=== PATIENT | female | born 1955 | race Caucasian/White ===

== ENCOUNTER 2021-06-20 09:35 | Emergency (ER) | payer OTHER, SELFPAY ==
--- NOTE | ~2021-06-20 | CT_ITS ---
EXAMINATION: CTA chest DATE: 06/20/2021 12:13 INDICATION: Shortness of breath. Cough. Upper back pain. TECHNIQUE: Computed tomographic angiography (CTA) of the chest was performed with 100 mL Omnipaque-35 0 intravenous contrast. Automated exposure control and iterative reconstruction technique were employ ed. The dose-length product was 264.37 mGy-cm. Maximum intensity projection 3D-reconstructions of the aorta and other arteries were constructed by the technologist on a separate workstation. COMPARISON: Chest single view 06/20/2021 FINDINGS: The lungs demonstrate mild atelectasis. No pleural effusion. The heart size is normal. No p ericardial effusion. There is no pulmonary embolus. Thoracic aorta is normal. There is a small slidin g hiatal hernia. There is moderate thoracic spondylosis. IMPRESSION: 1. Normal thoracic aorta. 2. No pulmonary embolus. 3. Small sliding hiatal hernia. Reviewed, dictated and finalized at location B.
--- NOTE | ~2021-06-20 | XR_ITS ---
XR chest 1V portable 06/20/2021 10:57 Indication: Shortness of breath. Nonproductive cough. Fever. Procedure: AP portable chest Comparison: 08/29/2016 Findings: Bibasilar airspace disease. Shallow inspiration. Heart size normal. No pleural effusion, ed maikol or pneumothorax. No acute osseous abnormality. Impression: 1: Bibasilar airspace disease, atelectasis versus developing pneumonia. Reviewed, dictated and finalized at location A. Impression: 1: Bibasilar airspace disease, atelectasis versus developing pneumonia.
[2021-06-20 09:38] VITALS: BP 125/69; PULSE 85; RESP 16; TEMP 36.2; O2SAT 97
[2021-06-20 10:21] VITALS: O2SAT 100
--- NOTE | 2021-06-20 10:30 | ECG_ITS ---
Measurements Intervals [place] Rate: 79 P: 6 [place]: 139 QRS: 21 QRSD: 86 T: -15 QT: 343 QTc: 393 Interpretive Statements SINUS RHYTHM BORDERLINE ST-T WAVE ABNORMALITY- ANT/INF LEADS BORDERLINE ECG Electronically Signed On 06-20-2021 10:44:25 CDT by Mukund Heart D.O.
--- NOTE | 2021-06-20 10:31 | ED.GENADULT ---
HPI - General Adult General Chief complaint: Upper Respiratory Infection Stated complaint: sob, back pain Time Seen by Provider: 06/20/21 10:11 Source: patient and RN notes reviewed Mode of arrival: ambulatory Limitations: no limitations History of Present Illness HPI narrative: This is a 66 year old female who presents for evaluation of shortness of breath and back pain. She reports nonproductive cough for 2 months. Her cough became worse over the past week. She also noticed constant mid upper back pain since friday. She has taken ibuprofen for her pain without relief. She is having difficulty breathing since Friday and it has gotten worse. She noticed that she is short of breath with laying flat since yesterday. Last night she had subjective fever with decreased appetite. She denies nausea, vomiting, abdominal pain, wheezing chest pain. She has not seen a doctor in 5 years. Related Data Allergies Allergy/AdvReac Type Severity Reaction Status Date / Time nitrofurantoin Allergy Unknown Unknown Verified 06/20/21 10:21 prednisone AdvReac Mild HYPER, Verified 06/20/21 10:21 UNABLE TO SLEEP/FOCUS DIPHENHYDRAMINE HCL AdvReac Mild Nervousness Uncoded 06/20/21 10:21 Review of Systems Review of Systems: All systems reviewed & are unremarkable except as noted in HPI and below Constitutional: Constitutional: Reports fatigue and Reports fever(s) ENT: Denies dizziness and Denies sore throat Cardiovascular: Cardiovascular: Denies chest pain Respiratory: Respiratory: Reports cough and Reports dyspnea Gastrointestinal: Gastrointestinal: Denies abdominal pain, Denies diarrhea, Denies nausea and Denies vomiting Musculoskeletal: Musculoskeletal: Reports back pain PMFSH Past Medical History Medical History (Updated 06/20/21 @ 13:33 by Elicia Chávez MD) Patient denies medical problems Surgical History Surgical History (Updated 06/20/21 @ 10:32 by Elicia Chávez MD) No pertinent past surgical history Family History Family History (Updated 09/11/17 @ 11:29 by DOCTOR UNKNOWN) Grandparent Hypertension Social History Social History Smoking status: Never smoker Alcohol intake: never Exam Const: General: no acute distress and alert Orientation/consciousness: patient oriented x3 Eyes: EOM: EOMs intact bilaterally Neck: Neck: normal visual inspection Chest: Chest palpation & inspection: normal inspection of the chest Resp: Effort & Inspection: normal respiratory effort and no retractions Auscultation: clear to auscultation bilaterally Cardio: Rate: regular rate Rhythm: regular rhythm Heart sounds: no murmurs GI: GI Palp: Yes Soft to palpation, No Tenderness to palpation present (GI) and No Guarding due to palpation present (GI) Auscultation: normal bowel sounds Back/Spine/Pelvis: Back: no CVA tenderness Thoracic/Lumbar Spine: thoracic and lumbar spine normal to inspection Skin: General skin exam: normal color Rashes: no rashes Neuro: General: patient oriented x3, moves all extremities and CN's II-XI intact bilaterally Extrem: General: normal to inspection Psych: Mental Status: mental status grossly normal Affect: normal affect Course Reevaluation(s) Reevaluation #1: Patient states she feels better. I discussed evaluation is unremarkable other than mild leukopenia. She will follow up with PCP. She will be tested for covid. Date: 06/20/21 Time: 13:29 Vital Signs Vital signs: Vital Signs Temperature 97.2 F L 06/20/21 09:38 Pulse Rate 85 06/20/21 09:38 Respiratory Rate 16 06/20/21 09:38 Blood Pressure 125/69 06/20/21 09:38 Pulse Oximetry 97 06/20/21 09:38 Temperature 97.2 F L 06/20/21 09:38 Pulse Rate 76 06/20/21 13:01 Respiratory Rate 17 06/20/21 13:01 Blood Pressure 98/53 L 06/20/21 13:01 Pulse Oximetry 96 06/20/21 13:01 Medical Decision Making Vital Signs Vital Signs: Vital Signs Temperature 97.2 F L
[2021-06-20] MEDS: SODIUM CHLORIDE 0.9% IV 1,000 ML 999 ML IV CONT (10:54)
[2021-06-20 10:57] LABS: Basophils Percent Auto 0.7 % (0.2-1.2); Eosinophils Percent Auto 0.3 % (0-4.4); Hematocrit 44.7 % (37.0-47.0); Hemoglobin 14.7 g/dL (12.0-15.0); Immature Granulocyte Absolute 0.01 K/mm3 (0.00-0.031); Immature Granulocyte Percent A 0.3 % (0-0.5); Lymphocytes Absolute Auto 0.58 K/mm3 (0.9-3.2); Mean Corpuscular HGB Conc 32.9 g/dl (32-36); Mean Corpuscular Hemoglobin 30.5 pg (26-34); Mean Corpuscular Volume 92.7 fl (80-100); Mean Platelet Volume 10.7 fl (7.4-10.4); Monocytes Absolute Auto 0.6 K/mm3 (0.1-0.6); Neutrophils Absolute Auto 1.9 K/mm3 (1.3-6.7); Neutrophils Percent Auto 61.7 % (45.5-73.1); Platelet Count Result 191 k/mm3 (150-375); Red Blood Count 4.82 M/mm3 (4.2-5.4); Red Cell Distribution Width 12.5 % (11.5-14.5); White Blood Count 3.1 K/mm3 (4.5-10.0)
[2021-06-20 11:01] VITALS: BP 101/76; PULSE 85; RESP 17; O2SAT 96
[2021-06-20 11:06] LABS: Lactic Acid Reflex 0.7 mmol/L (0.7-2.1)
[2021-06-20 11:08] LABS: Alanine Aminotransferase 25 U/L (4-35); Albumin Level 4.1 g/dL (3.5-5.1); Alkaline Phosphatase 90 U/L (38-126); Anion Gap 7 mmol/L (8-16); Aspartate Amino Transferase 29 U/L (14-36); Bilirubin,Total 0.5 mg/dL (0.2-1.3); Blood Urea Nitrogen 14 mg/dL (7-17); Calcium 8.7 mg/dL (8.4-10.2); Carbon Dioxide 23 mmol/L (22-30); Chloride 105 mmol/L (98-107); Estimated CRCL calculation 55 ml/min; Estimated Glomerular Filt Rate > 60; Glucose 85 mg/dL (65-110); Potassium 3.6 mmol/L (3.4-5.0); Sodium 135 mmol/L (137-145)
[2021-06-20 11:16] LABS: NT Pro B Type Natriuretic Pept 78 pg/mL (5-100)
[2021-06-20 11:20] LABS: CRP 0.7 mg/dL (<1.0)
[2021-06-20 11:20] LABS: Add Urine Microscopic? YES; Appearance Urine Clear (Clear); Bacteria Urine 2+ /hpf; Bilirubin Urine Negative (Negative); Blood Urine Negative (Negative); Color Urine Yellow (Yellow); Glucose Urine UA Negative (Negative); Ketones Urine Negative (Negative); Leukocyte Esterase Ur Trace LEU/UL (Negative); Mucus Urine Rare /lpf; Nitrate Urine Negative (Negative); Protein Urine Negative (Negative); RBC Urine 0-2 /hpf (0-2); Specific Grav Ur 1.014 (1.001-1.035); Squamous Epithelial Cell Urine Occasional /hpf (Few); Urobilinogen Urine Negative mg/dL (<2.0); WBC Urine 0-3 /hpf
[2021-06-20 11:29] LABS: Troponin I < 0.012 ng/mL (0.000-0.034)
[2021-06-20 11:31] VITALS: BP 93/71; PULSE 77; RESP 19; O2SAT 96
[2021-06-20 11:35] LABS: INR 0.9; Prothrombin Time 12.1 Seconds (11.1-14.7)
[2021-06-20 11:36] LABS: Partial Thromboplastin Time 26.4 SECONDS (22.3-36.8)
[2021-06-20 11:38] LABS: D Dimer 0.41 ug/mL (<0.48)
[2021-06-20 13:01] VITALS: BP 98/53; PULSE 76; RESP 17; O2SAT 96
[2021-06-21 17:13] LABS: SARS-CoV-2 RNA PCR Positive
== END 2021-06-20 13:55 | disposition home or self-care (01) ==
PROVIDERS: Emergency Provider General Practice; PCP Family Medicine
DX: U07.1 COVID-19 (principal); R53.83 Other fatigue; M54.6 Pain in thoracic spine; K44.9 Diaphragmatic hernia without obstruction or gangrene; R91.8 Other nonspecific abnormal finding of lung field; R94.31 Abnormal electrocardiogram [ECG] [EKG]
CPT/HCPCS: 36415; 71045; 71275; 80053; 81001; 83605; 83735; 83880; 84484; 85025; 85380; 85610; 85730; 86140; 93005; 96361; 96365; 99284; C9803; J0131; J7030; Q9967; U0003; U0005

== ENCOUNTER 2021-06-25 01:42 | Emergency (ER) | payer OTHER, SELFPAY ==
[2021-06-25 01:52] VITALS: BP 111/77; PULSE 99; RESP 20; TEMP 37.6; O2SAT 94
[2021-06-25 02:08] VITALS: BP 119/71; PULSE 94; RESP 20; O2SAT 94
[2021-06-25] MEDS: KETOROLAC 30 MG/ML VIAL (*BKC) IV PUSH (02:21)
[2021-06-25] MEDS: METOCLOPRAMIDE HCL INJ 10 MG/2 ML VIAL IV PUSH (02:21)
[2021-06-25] MEDS: SODIUM CHLORIDE 0.9% IV 1,000 ML 999 ML IV CONT (02:21)
[2021-06-25] MEDS: diphenhydrAMINE HCl INJ 50 MG/ML VIAL 25 MG IV PUSH (02:21)
--- NOTE | 2021-06-25 02:38 | ED.HA ---
HPI - Headache General Chief Complaint: Headache Stated Complaint: covid + 3 days ago; c/o alejandro that won't go away. Time Seen by Provider: 06/25/21 01:46 History of Present Illness HPI Narrative: Patient is a 66-year-old female who presents to the ER with headache. Frontal and aching behind her eyes. Endorses photophobia and phonophobia. No nausea or vomiting. No neck stiffness or limitation range of motion. She has no numbness/tingling/weakness in the arms or legs. Patient recently diagnosed with COVID-19 the day her headache started. She reports fevers and chills. No relief with ibuprofen. Related Data Allergies Allergy/AdvReac Type Severity Reaction Status Date / Time nitrofurantoin Allergy Unknown Unknown Verified 06/20/21 10:21 prednisone AdvReac Mild HYPER, Verified 06/20/21 10:21 UNABLE TO SLEEP/FOCUS DIPHENHYDRAMINE HCL AdvReac Mild Nervousness Uncoded 06/20/21 10:21 Review of Systems Review of Systems: All systems reviewed & are unremarkable except as noted in HPI and below Constitutional: Constitutional: Reports chills, Reports fatigue and Reports fever(s) Eyes: Eyes: Denies change in vision and Reports photophobia ENT: Reports nasal congestion and Denies sore throat Respiratory: Respiratory: Reports cough, Denies dyspnea and Denies wheezing Neurologic: Denies dizziness, Reports headache(s), Denies focal weakness and Denies numbness PMFSH Past Medical History Medical History (Updated 06/25/21 @ 03:52 by Kevin Lozano MD) Patient denies medical problems Surgical History Surgical History (Updated 06/25/21 @ 02:43 by Kevin Lozano MD) History of hysterectomy Hx of appendectomy Family History Family History (Updated 09/11/17 @ 11:29 by DOCTOR UNKNOWN) Grandparent Hypertension Social History Social History Smoking status: Never smoker Alcohol intake: never Exam Narrative: GENERAL: Well-appearing, well-nourished, and in no acute distress. HEAD: Normocephalic, atraumatic. EYES: PERRL and EOMI. ENT: Mucous membranes moist. CHEST: Clear to auscultation. No respiratory distress. HEART: Regular rate and rhythm. Normal peripheral pulses. ABDOMEN: Soft, nontender, nondistended. EXTREMITIES: Normal range of motion. No edema. SKIN: Warm, dry, no rash. NEURO: Alert and oriented x3. Course Course Emergency Course: Patient originally treated with Reglan/Benadryl/Toradol without much improvement in headache. Patient then received morphine and felt significant improvement. Feels comfortable discharge home. Vital Signs Vital signs: Vital Signs Temperature 99.6 F 06/25/21 01:52 Pulse Rate 99 06/25/21 01:52 Respiratory Rate 20 06/25/21 01:52 Blood Pressure 111/77 06/25/21 01:52 Pulse Oximetry 94 06/25/21 01:52 Temperature 99.6 F 06/25/21 01:52 Pulse Rate 85 06/25/21 03:54 Respiratory Rate 20 06/25/21 03:54 Blood Pressure 104/63 06/25/21 03:54 Pulse Oximetry 95 06/25/21 03:54 Discharge Plan Discharge Clinical Impression: Headache Patient Disposition: Home, Self-Care Condition: Stable Instructions: Acute Headache (ED) Additional Instructions: Alternate Tylenol and ibuprofen for headache at home. Return to the ER if you cannot keep down food or water, you have new focal weakness or numbness in arm or leg, you have slurred speech, you have additional concerns. Prescriptions: No Action albuterol sulfate 90 mcg/actuation HFA aerosol inhaler 2 puff inhalation QID PRN (Reason: shortness of breath or wheezing) Qty: 6.7 RF: 0 benzonatate [Tessalon Perles] 100 mg capsule 100 mg PO TID PRN (Reason: cough) Qty: 10 RF: 0 Follow-up/Referrals: Sonny Bills MD [Primary Care Provider] - 1 Week
[2021-06-25 03:12] VITALS: BP 115/76; PULSE 91; RESP 24; O2SAT 93
[2021-06-25] MEDS: MORPHINE SULFATE (*CRX) 4 MG/ML INJ IV PUSH (03:12)
[2021-06-25 03:44] VITALS: BP 102/63; PULSE 81; RESP 22; O2SAT 92
[2021-06-25 03:54] VITALS: BP 104/63; PULSE 85; RESP 20; O2SAT 95
== END 2021-06-25 04:15 | disposition home or self-care (01) ==
PROVIDERS: Emergency Provider Emergency Medicine; PCP Family Medicine
DX: U07.1 COVID-19 (principal); R51.9 Headache, unspecified
CPT/HCPCS: 96361; 96374; 96375; 99284; J1200; J1885; J2270; J2765; J7030

== ENCOUNTER 2021-06-30 09:14 | Inpatient (IN) | payer OTHER, MEDICARE, SELFPAY ==
[2021-06-30] VITALS (13 sets, daily range): BP systolic 109–123; BP diastolic 64–81; PULSE 74–107; RESP 18–28; TEMP 36.2–36.7; O2SAT 89–96; BMI 30.4
--- NOTE | ~2021-06-30 | US_ITS ---
US abdomen limited DATE: 06/30/2021 15:12 INDICATION: Elevated liver enzymes TECHNIQUE: Real-time imaging of liver, pancreas, gallbladder COMPARISON: None FINDINGS: No hepatic space-occupying mass lesion is evident. Normal hepatopedal portal venous flow di rection. The pancreas is not optimally evaluated due to interference from bowel gas. No gallstones or gallbladder wall thickening or abnormal pericholecystic fluid collection. Negative s onographic Velez's sign. The common bile duct measures 4 mm, normal. IMPRESSION: Limited evaluation of pancreas; otherwise unremarkable examination Reviewed, dictated and finalized at Location A. Reviewed, dictated and finalized at location A.
--- NOTE | ~2021-06-30 | XR_ITS ---
EXAMINATION: XR chest 1V portable DATE: 06/30/2021 09:52 INDICATION: Shortness of breath. COVID positive. TECHNIQUE: frontal view of the chest was obtained. COMPARISON: Chest radiograph dated 06/20/2021 FINDINGS: Increasing opacities in the right upper bilateral mid and lower lung zones with appearance most consi stent with COVID pneumonia. No pleural effusion or pneumothorax. The cardiomediastinal silhouette is normal. IMPRESSION: 1. New opacities in the right upper and bilateral mid and lower lung zones and favor COVID pneumonia over pulmonary edema. Reviewed, dictated and finalized at location A.
--- NOTE | ~2021-06-30 | CT_ITS ---
EXAMINATION: CTA chest PE protocol DATE: 06/30/2021 11:26 INDICATION: Shortness of breath. Elevated d-dimer. TECHNIQUE: Computed tomography (CT) pulmonary angiogram of the chest was performed with 100 mL Omnipa que-350 intravenous contrast. Additional 3D reconstructions utilizing coronal maximum intensity proje ction (MIP) were performed. Automated exposure control and iterative reconstruction technique were em ployed. The dose-length product was 219.22 mGy-cm. COMPARISON: None FINDINGS: Excellent contrast opacification of the pulmonary arteries. There is moderate streak artifact from de nse contrast in the superior vena cava and right atrium. Mild to moderate basilar predominant scatter ed respiratory motion artifact. Together this decreases sensitivity primarily in the basilar subsegme ntal pulmonary arteries. No pulmonary motion. Scattered bandlike opacities, patchy groundglass opacit ies and small regions of consolidation throughout both lungs relatively sparing the left upper lung z one with appearance most consistent with COVID pneumonia. No pleural effusion. Heart size is normal. No pericardial effusion. Small to moderate-sized sliding-type hiatal hernia. Thoracic aorta is normal in caliber with no dissection. Mild mediastinal lymphadenopathy which is likely reactive. Minimal S- shaped curvature of the thoracic spine. IMPRESSION: 1. No evident pulmonary embolism with sensitivity decreased in some of the basilar subsegmental pulmo nary arteries due to primarily to motion artifact. 2. Diffuse bilateral lung disease most consistent with COVID pneumonia. Reviewed, dictated and finalized at location A. IMPRESSION: 1. No evident pulmonary embolism with sensitivity decreased in some of the basi lar subsegmental pulmonary arteries due to primarily to motion artifact. 2. Diffuse bilateral lung disease most consistent with COVID pneumonia.
--- NOTE | 2021-06-30 09:32 | ECG_ITS ---
Measurements Intervals [place] Rate: 104 P: 18 [place]: 148 QRS: 69 QRSD: 91 T: -22 QT: 320 QTc: 422 Interpretive Statements SINUS TACHYCARDIA EARLY PRECORDIAL R/S TRANSITION ST-T WAVE ABNORMALITY IN ANTEROLAT/INF LEADS- CONSIDER ISCHEMIA ABNORMAL ECG Electronically Signed On 06-30-2021 12:21:22 CDT by Mukund Heart D.O.
--- NOTE | 2021-06-30 09:41 | ED.SOB ---
HPI - SOB/Dyspnea General Chief Complaint: Shortness of Breath/Dyspnea Stated Complaint: covid +, weakness Time Seen by Provider: 06/30/21 09:23 Source: patient, RN notes reviewed and old records reviewed Mode of arrival: ambulatory Limitations: no limitations History of Present Illness HPI Narrative: This is a 66 year old COVID + female who presents for evaluation of weakness and shortness of breath. Patient was diagnosed with COVID 10 days after she presented to ER with back pain, fever, cough for 2 days. She reports worsening shortness of breath over the past 1 week. She has intermittent nausea and vomiting, but she denies diarrhea. She states she is not eating or drinking very much. She denies chest pain or abdominal pain. She does reports a continued cough with subjective fever. She just feels so weak, and her oxygen saturation was 89% on room air on arrival in triage. Related Data Allergies Allergy/AdvReac Type Severity Reaction Status Date / Time nitrofurantoin Allergy Unknown Unknown Verified 06/30/21 09:30 diphenhydramine AdvReac Mild Nervousness Verified 06/30/21 09:34 prednisone AdvReac Mild HYPER, Verified 06/30/21 09:30 UNABLE TO SLEEP/FOCUS Review of Systems Review of Systems: All systems reviewed & are unremarkable except as noted in HPI and below Constitutional: Constitutional: Reports fever(s) and Reports weakness Cardiovascular: Cardiovascular: Denies chest pain Respiratory: Respiratory: Reports cough and Reports dyspnea Gastrointestinal: Gastrointestinal: Denies abdominal pain, Denies diarrhea, Reports nausea and Reports vomiting Neurologic: Reports weakness PMFSH Past Medical History Medical History Patient denies medical problems Surgical History Surgical History History of hysterectomy Hx of appendectomy Family History Family History Grandparent Hypertension Social History Social History (Updated 06/30/21 @ 14:04 by Louisa Bridges NP) Social History: The patient lives with her whom is her poa and she desires to be a full code. She works for an [employer]. She has no children. Lifelong nonsmoker and does not use alcohol. No marijuana or illicit drugs. Smoking status: Never smoker Alcohol intake: never Substance use: never Spiritual care concerns: No Exam Const: General: no acute distress and alert Orientation/consciousness: patient oriented x3 HENMT: Mouth: Yes lip normal and Yes dry mucous membranes Eyes: EOM: EOMs intact bilaterally Resp: Effort & Inspection: normal respiratory effort and no retractions Auscultation: clear to auscultation bilaterally Cardio: Rate: tachycardic Rhythm: regular rhythm Heart sounds: no murmurs GI: GI Palp: Yes Soft to palpation, No Tenderness to palpation present (GI) and No Guarding due to palpation present (GI) Auscultation: normal bowel sounds Skin: General skin exam: normal color Rashes: no rashes Neuro: General: patient oriented x3, moves all extremities and CN's II-XI intact bilaterally Extrem: General: normal to inspection Psych: Mental Status: mental status grossly normal Affect: normal affect Course Consultations Consultation #1: PAtient was found to have hypoxia due to covid pneumonia. She is also dehydrated. She will be admitted to hospitalist service. She also has new elevated LFT. I discussed case with Louisa dill who accepts patient to service. Date: 06/30/21 Time: 12:20 Vital Signs Vital signs: Vital Signs Temperature 97.1 F L 06/30/21 09:19 Pulse Rate 107 H 06/30/21 09:19 Respiratory Rate 26 H 06/30/21 09:19 Blood Pressure 123/75 06/30/21 09:19 Pulse Oximetry 89 L 06/30/21 09:19 Temperature 98.0 F 06/30/21 16:00 Pulse Rate 82 06/30/21 16:00 Respiratory Rate 24 H 06/30/21 16:00
[2021-06-30 09:44] LABS: Glucose Point of Care 92 mg/dl (65-105)
[2021-06-30 09:46] LABS: Basophils Percent Auto 0.2 % (0.2-1.2); Hematocrit 45.6 % (37.0-47.0); Hemoglobin 15.4 g/dL (12.0-15.0); Immature Granulocyte Absolute 0.09 K/mm3 (0.00-0.031); Immature Granulocyte Percent A 1.1 % (0-0.5); Lymphocytes Absolute Auto 0.52 K/mm3 (0.9-3.2); Lymphocytes Percent Auto 6.5 % (18.3-44.2); Mean Corpuscular HGB Conc 33.8 g/dl (32-36); Mean Corpuscular Hemoglobin 29.8 pg (26-34); Mean Corpuscular Volume 88.4 fl (80-100); Mean Platelet Volume 10.9 fl (7.4-10.4); Monocytes Absolute Auto 0.6 K/mm3 (0.1-0.6); Neutrophils Absolute Auto 6.8 K/mm3 (1.3-6.7); Neutrophils Percent Auto 84.2 % (45.5-73.1); Platelet Count Result 246 k/mm3 (150-375); Red Blood Count 5.16 M/mm3 (4.2-5.4); Red Cell Distribution Width 12.5 % (11.5-14.5)
[2021-06-30] MEDS: SODIUM CHLORIDE 0.9% IV 1,000 ML 999 ML IV CONT ×2 (09:51→11:06)
[2021-06-30 10:09] LABS: NT Pro B Type Natriuretic Pept 225 pg/mL (5-100); Troponin I < 0.012 ng/mL (0.000-0.034)
[2021-06-30 10:10] LABS: Partial Thromboplastin Time 25.8 SECONDS (22.3-36.8)
[2021-06-30 10:12] LABS: Alanine Aminotransferase 190 U/L (4-35); Albumin Level 3.6 g/dL (3.5-5.1); Alkaline Phosphatase 199 U/L (38-126); Anion Gap 9 mmol/L (8-16); Aspartate Amino Transferase 214 U/L (14-36); Bilirubin,Total 1.6 mg/dL (0.2-1.3); Blood Urea Nitrogen 21 mg/dL (7-17); CRP 14.2 mg/dL (<1.0); Calcium 8.6 mg/dL (8.4-10.2); Carbon Dioxide 24 mmol/L (22-30); Chloride 102 mmol/L (98-107); Estimated CRCL calculation 61 ml/min; Estimated Glomerular Filt Rate > 60; Glucose 99 mg/dL (65-110); Potassium 3.4 mmol/L (3.4-5.0); Sodium 135 mmol/L (137-145)
[2021-06-30 10:13] LABS: D Dimer 0.94 ug/mL (<0.48)
[2021-06-30 10:15] LABS: Alveolar/Arterial O2 Gradient 78.2 mmHg; Base Excess ABG -0.7 mEq/l (+/-2.0); Fractional Inspired Oxygen 28 %; HCO3 ABG 22.1 mEq/l (22.0-26.0); Oxygen Content ABG 19.5 %vol (16.0-22.0); Oxygen Saturation ABG 96.9 % (95.0-100.0); Oxyhemoglobin 95.5 % THb (90.0-100.0); PCO2 ABG 31.7 mmHg (35.0-45.0); Total Hemoglobin 14.5 g/dL (12.0-18.0); pH ABG 7.462 (7.350-7.450)
[2021-06-30 10:16] LABS: Device NASAL CANNULA; Modified Allen's Test Pass; Site Drawn RIGHT BRACHIAL
[2021-06-30 10:19] LABS: Lactic Acid Reflex 0.7 mmol/L (0.7-2.1)
[2021-06-30 11:17] LABS: Add Urine Microscopic? YES; Appearance Urine Cloudy (Clear); Bacteria Urine 4+ /hpf; Bilirubin Urine 1+ (Negative); Blood Urine 2+ (Negative); Color Urine Amber (Yellow); Glucose Urine UA Negative (Negative); Ketones Urine 1+ mg/dL (Negative); Leukocyte Esterase Ur 2+ LEU/UL (Negative); Mucus Urine Rare /lpf; Nitrate Urine Positive (Negative); Protein Urine 2+ mg/dL (Negative); Specific Grav Ur 1.023 (1.001-1.035); Squamous Epithelial Cell Urine Few /hpf (Few); WBC Urine 31-50 /hpf
[2021-06-30] MEDS: SODIUM CHLORIDE 0.9% IV 1,000 ML 125 ML IV CONT (12:52)
[2021-06-30] MEDS: DEXAMETHASONE 2 MG TABLET 6 MG PO (13:34)
--- NOTE | 2021-06-30 13:45 | PC.NURSE ---
attempted to call floor for report. nurse will call ed back when avail.
--- NOTE | 2021-06-30 13:45 | PM.IMHP ---
H&P: HPI History of Present Illness Date/Time: 06/30/21 13:45Thishawna is a 66 year old femal patient who came into the er with complaints of weakness and sob. The patient was dx with covid 19 approximately 10 days ago. The patient stated that her cough and back pain has gotten worse over the last 2 days. She has not been drinking or eating well . She stated that she had a tactile fever as well. She has nausea with intermittent vomiting. She is weak. Her o2 saturation was 89% on room air in triage. Oxygen was applied at 2 liters per nasal cannula.The patient was started on decadron. However remdesivir was not started because of her elevated liver enzymes.The patient was found to have a uti and was started on rocephin. Chest x ray was read as New opacities in the right upper and bilateral mid and lower lung zones and favor COVID pneumonia over pulmonary edema.cta was read as . No evident pulmonary embolism with sensitivity decreased in some of the basilar subsegmental pulmonary arteries due to primarily to motion artifact. 2. Diffuse bilateral lung disease most consistent with COVID pneumonia.Total bilirubin 1.6. ast 190, alkaline phoshatase 199. crp 14.2. urine positive for uti.Patient was admited as inpatient om 06/30/21 Chief Complaint: fever, cough, and weakness Review of Systems Review of Systems: All systems reviewed & are unremarkable except as noted in HPI and below Constitutional: Constitutional: Reports as per HPI and Reports no additional constitutional complaints Eyes: Eyes: Reports as per HPI and Reports no additional eye complaints ENT: Reports system reviewed and no additional complaints, except as documented and Reports Normal hearing present Cardiovascular: Cardiovascular: Reports no additional cardiovascular complaints Respiratory: Respiratory: Reports no additional respiratory complaints and Reports no additional respiratory complaints Gastrointestinal: Gastrointestinal: Reports as per HPI and Reports no additional gastrointestinal complaints Musculoskeletal: Musculoskeletal: Reports no additional musculoskeletal complaints Integumentary/Breasts: Skin/Breast: Reports system reviewed and no additional complaints, except as docu and Reports as per HPI Neurologic: Reports system reviewed and no additional complaints, except as documented, Reports as per HPI and Reports Normal hearing present Psychiatric: Psychiatric: Reports no additional psychiatric complaints and Reports as per HPI Endocrine: Endocrine: Reports no additional endocrine complaints Hematologic/Lymphatic: Hematologic/Lymphatic: Reports no additional hematologic/lymphatic complaints Allergic/Immunologic: Allergic/Immunologic: Reports no additional allergic/immunologic complaints PMFSH Past Medical History Medical History Patient denies medical problems Surgical History Surgical History History of hysterectomy Hx of appendectomy Family History Family History Grandparent Hypertension Social History Social History (Updated 06/30/21 @ 14:04 by Louisa Bridges NP) Social History: The patient lives with her whom is her poa and she desires to be a full code. She works for an [employer]. She has no children. Lifelong nonsmoker and does not use alcohol. No marijuana or illicit drugs. Smoking status: Never smoker Alcohol intake: never Meds Home Medications and Allergies Home Medications Medication Instructions Recorded Confirmed Type albuterol sulfate 2 puff INHALATION QID PRN #6.7 g 06/20/21 Rx benzonatate [Tessalon Perles] 100 mg PO TID PRN #10 cap 06/20/21 Rx Allergies Allergy/AdvReac Type Severity Reaction Status Date / Time nitrofurantoin Allergy Unknown Unknown Verified 06/30/21 09:30 diphenhydramine AdvReac Mild Nervousness Verified 06/30/21 09:34 pr
--- NOTE | 2021-06-30 14:27 | ADMGEN ---
This patient, Kenya Yan, was admitted to 3 Med Surg Room 311-01. Patient/family oriented to hospital policies and general routines including ID bracelet, bed and alarms, visiting hours, pain management, procedures, bathroom and other care routines, personal items, smoking policy, room service/diet, and visiting hours. Information on how to activate the Rapid Response Team has been discussed. Patient/Family are encouraged to report perceived risks to care and to ask questions if they do not understand what they are told or what they should do.
[2021-06-30 15:23] LABS: Alanine Aminotransferase 151 U/L (4-35); Prothrombin Time 13.3 Seconds (11.1-14.7)
[2021-06-30] MEDS: ALBUTEROL SULFATE (*SP) INHALER 2 PUFF INHALATION (20:35)
[2021-07-01] VITALS (10 sets, daily range): BP systolic 97–120; BP diastolic 44–67; PULSE 61–87; RESP 12–18; TEMP 36.3–36.9; O2SAT 91–95
[2021-07-01 06:59] LABS: Basophils Percent Auto 0.2 % (0.2-1.2); Hematocrit 40.2 % (37.0-47.0); Hemoglobin 13.8 g/dL (12.0-15.0); Immature Granulocyte Absolute 0.05 K/mm3 (0.00-0.031); Immature Granulocyte Percent A 0.8 % (0-0.5); Lymphocytes Absolute Auto 0.47 K/mm3 (0.9-3.2); Lymphocytes Percent Auto 7.9 % (18.3-44.2); Mean Corpuscular HGB Conc 34.3 g/dl (32-36); Mean Corpuscular Hemoglobin 30.3 pg (26-34); Mean Corpuscular Volume 88.2 fl (80-100); Mean Platelet Volume 10.8 fl (7.4-10.4); Monocytes Absolute Auto 0.6 K/mm3 (0.1-0.6); Monocytes Percent Auto 9.2 % (2.6-8.5); Neutrophils Absolute Auto 4.9 K/mm3 (1.3-6.7); Neutrophils Percent Auto 81.9 % (45.5-73.1); Platelet Count Result 215 k/mm3 (150-375); Red Blood Count 4.56 M/mm3 (4.2-5.4); Red Cell Distribution Width 12.7 % (11.5-14.5)
[2021-07-01 07:09] LABS: Prothrombin Time 13.3 Seconds (11.1-14.7)
[2021-07-01 07:14] LABS: Alanine Aminotransferase 131 U/L (4-35); Albumin Level 2.8 g/dL (3.5-5.1); Alkaline Phosphatase 134 U/L (38-126); Anion Gap 8 mmol/L (8-16); Aspartate Amino Transferase 80 U/L (14-36); Bilirubin,Total 0.6 mg/dL (0.2-1.3); Blood Urea Nitrogen 16 mg/dL (7-17); Calcium 8.2 mg/dL (8.4-10.2); Carbon Dioxide 22 mmol/L (22-30); Chloride 104 mmol/L (98-107); Estimated CRCL calculation 72 ml/min; Estimated Glomerular Filt Rate > 60; Glucose 114 mg/dL (65-110); Potassium 3.5 mmol/L (3.4-5.0); Sodium 134 mmol/L (137-145)
[2021-07-01 08:04] LABS: Hepatitis B Surface Antigen Negative (Negative)
[2021-07-01 08:09] LABS: HAV RESULT Negative (Negative); Hepatitis B Core IgM Result Negative (Negative)
[2021-07-01 08:21] LABS: Hepatitis C Virus Antibody Negative (Negative)
[2021-07-01] MEDS: DEXAMETHASONE 2 MG TABLET 6 MG PO (09:10)
[2021-07-01] MEDS: ENOXAPARIN 40 MG/0.4 ML SYRINGE SUB-Q (09:11)
[2021-07-01] MEDS: ALBUTEROL SULFATE (*SP) INHALER 2 PUFF INHALATION ×3 (10:13→20:16)
--- NOTE | 2021-07-01 10:23 | PM.IMPN ---
Progress Note: A&P Assessment and Plan (1) Pneumonia due to COVID-19 virus: Code(s): U07.1 - COVID-19; J12.82 - Pneumonia due to coronavirus disease 2019 Status: Acute Assessment and Plan: Continue with dexamethasone and oxygen. She is out of the window for remdesivir, also has elevated liver enzymes. Contiue to monitor liver function. Robitussin PRN. (2) UTI (urinary tract infection): Code(s): N39.0 - Urinary tract infection, site not specified Status: Acute Assessment and Plan: Continue with Rocephin. awaiting urine and blood culture. Treat according to cultures. (3) Elevated liver enzymes: Code(s): R74.8 - Abnormal levels of other serum enzymes Status: Acute Assessment and Plan: Right upper quadrant abdominal Ultrasound 06/30 was unremarkable. Hepatitis panel negative. (4) Full code status: Code(s): Z78.9 - Other specified health status Status: Acute Assessment and Plan: Discussed on admission (5) DVT prophylaxis: Code(s): Z29.9 - Encounter for prophylactic measures, unspecified Status: Acute Assessment and Plan: Enoxaparin subQ Subjective Date/time seen: 07/01/21 10:23 No major issues overnight. Hemodynamically stable but soft blood pressures. Afebrile. She feels her breathing is about the same. Respiratory rate has improved. She is on oxygen by nasal cannula. Review of Systems Review of Systems: All systems reviewed & are unremarkable except as noted in HPI and below Exam Narrative: Gen: Alert, NAD Abd: Soft, NT, ND Heart: RRR Lungs: CTAB Ext: No lower extremity edema Objective Data Vital Signs Vital Signs: Vital Signs - 24 hr 06/30/21 11:00 06/30/21 13:00 06/30/21 14:07 Temperature Pulse Rate 80 89 89 Respiratory Rate 28 H 28 H 26 H Blood Pressure 113/73 117/81 110/75 Pulse Oximetry 94 93 95 06/30/21 14:25 06/30/21 15:35 06/30/21 16:00 Temperature 97.2 F L 98.0 F Pulse Rate 80 82 Respiratory Rate 24 H 24 H Blood Pressure 118/64 121/73 Pulse Oximetry 96 93 93 06/30/21 19:45 06/30/21 20:00 06/30/21 20:39 Temperature 98.1 F Pulse Rate 74 78 74 Respiratory Rate 18 18 18 Blood Pressure 109/65 Pulse Oximetry 94 94 94 07/01/21 00:00 07/01/21 04:00 07/01/21 08:32 Temperature 97.3 F L 98.2 F 97.8 F Pulse Rate 69 61 83 Respiratory Rate 18 18 12 Blood Pressure 97/52 L 103/54 L 101/65 Pulse Oximetry 94 94 91 Intake/Output Intake/Output: Intake & Output 06/28/21 06/29/21 06/30/21 07/01/21 23:59 23:59 23:59 23:59 Intake Total 3250 990 Output Total 400 Balance 2850 990 Meds/Results Medications: Active Medications Generic Name Dose Route Start Last Admin Trade Name Freq PRN Reason Stop Dose Admin Albuterol 2 puff 06/30/21 20:00 07/01/21 10:13 Albuterol Sulfate (*Sp) Inhaler INHALATION 2 puff QIDRT [facility] Administration Dexamethasone 6 mg 06/30/21 08:00 07/01/21 09:10 Dexamethasone 2 Mg Tablet PO 07/09/21 08:01 6 mg DAILY@0800 [facility] Administration Enoxaparin Sodium 40 mg 07/01/21 09:00 07/01/21 09:11 Enoxaparin 40 Mg/0.4 Ml Syringe SUB-Q 40 mg DAILY [facility] Administration Guaifenesin/Dextromethorphan 10 ml 06/30/21 13:39 Guaifenesin/Dextromethorphan 10 Ml Udc PO Q4H PRN Cough Ceftriaxone Sodium/Dextrose 1 gm in 50 mls @ 100 mls/hr 07/01/21 13:00 Rocephin 1 Gm/D5w 50 Ml IVPB Q24H [facility] Radiology Results: ITS Impressions Chest X-Ray 06/30/21 09:58 IMPRESSION: 1. New opacities in the right upper and bilateral mid and lower lung zones and favor COVID pneumonia over pulmonary edema. Chest CTA 06/30/21 11:54 IMPRESSION: 1. No evident pulmonary embolism with sensitivity decreased in some of the basilar subsegmental pulmonary arteries due to primarily to motion artifact. 2. Diffuse bilateral lung disease most consistent with COVID pneumonia. Abdomen Ultrasound 06/30/21 22:16 IMPRESS
--- NOTE | 2021-07-01 17:34 | PCRCNOTE ---
Window of time for administration has passed. See next scheduled administration.
[2021-07-02] VITALS (10 sets, daily range): BP systolic 101–127; BP diastolic 62–70; PULSE 64–100; RESP 16–18; TEMP 36.1–36.8; O2SAT 87–94
[2021-07-02 07:08] LABS: Alanine Aminotransferase 109 U/L (4-35); Estimated CRCL calculation 62 ml/min; Estimated Glomerular Filt Rate > 60; Prothrombin Time 13.3 Seconds (11.1-14.7)
[2021-07-02] MEDS: ALBUTEROL SULFATE (*SP) INHALER 2 PUFF INHALATION ×4 (08:21→21:12)
[2021-07-02] MEDS: ENOXAPARIN 40 MG/0.4 ML SYRINGE SUB-Q (08:39)
[2021-07-02] MEDS: DEXAMETHASONE 2 MG TABLET 6 MG PO (08:40)
--- NOTE | 2021-07-02 12:09 | PM.IMPN ---
Progress Note: A&P Assessment and Plan (1) Pneumonia due to COVID-19 virus: Code(s): U07.1 - COVID-19; J12.82 - Pneumonia due to coronavirus disease 2019 Status: Acute Assessment and Plan: Continue with dexamethasone and oxygen. She is out of the window for remdesivir, also has elevated liver enzymes. Robitussin PRN. Wean oxygen as tolerated. (2) UTI (urinary tract infection): Code(s): N39.0 - Urinary tract infection, site not specified Status: Acute Assessment and Plan: Continue with Rocephin. Awaiting urine and blood culture. Treat according to cultures. (3) Elevated liver enzymes: Code(s): R74.8 - Abnormal levels of other serum enzymes Status: Acute Assessment and Plan: Right upper quadrant abdominal Ultrasound 06/30 was unremarkable. Hepatitis panel negative. (4) Full code status: Code(s): Z78.9 - Other specified health status Status: Acute Assessment and Plan: Discussed on admission (5) DVT prophylaxis: Code(s): Z29.9 - Encounter for prophylactic measures, unspecified Status: Acute Assessment and Plan: Enoxaparin subQ Subjective Date/time seen: 07/02/21 12:09 Reports continued mild shortness of breath. She is on 1 L of oxygen by nasal cannula. Gets short winded when she gets up to the bathroom. Otherwise hemodynamically stable. No major events overnight. Review of Systems Review of Systems: All systems reviewed & are unremarkable except as noted in HPI and below Exam Narrative: Gen: Alert, NAD Abd: Soft, NT, ND Heart: RRR Lungs: CTAB Ext: No lower extremity edema Objective Data Vital Signs Vital Signs: Vital Signs - 24 hr 07/01/21 12:22 07/01/21 16:50 07/01/21 20:00 Temperature 97.6 F 98.1 F 98.4 F Pulse Rate 87 86 73 Respiratory Rate 14 14 18 Blood Pressure 120/63 109/67 109/65 Pulse Oximetry 92 92 94 07/01/21 20:15 07/01/21 23:42 07/02/21 04:00 Temperature 97.9 F 98.2 F Pulse Rate 78 67 64 Respiratory Rate 18 18 Blood Pressure 107/44 L 110/62 Pulse Oximetry 92 95 93 07/02/21 08:00 07/02/21 08:23 07/02/21 08:30 Temperature 97.4 F L Pulse Rate 87 Respiratory Rate 18 Blood Pressure 111/69 Pulse Oximetry 91 87 L 91 Intake/Output Intake/Output: Intake & Output 06/29/21 06/30/21 07/01/21 07/02/21 23:59 23:59 23:59 23:59 Intake Total 3250 2070 790 Output Total 400 400 900 Balance 2850 1670 -110 Meds/Results Medications: Active Medications Generic Name Dose Route Start Last Admin Trade Name Freq PRN Reason Stop Dose Admin Albuterol 2 puff 06/30/21 20:00 07/02/21 08:21 Albuterol Sulfate (*Sp) Inhaler INHALATION 2 puff QIDRT [facility] Administration Dexamethasone 6 mg 06/30/21 08:00 07/02/21 08:40 Dexamethasone 2 Mg Tablet PO 07/09/21 08:01 6 mg DAILY@0800 [facility] Administration Enoxaparin Sodium 40 mg 07/01/21 09:00 07/02/21 08:39 Enoxaparin 40 Mg/0.4 Ml Syringe SUB-Q 40 mg DAILY [facility] Administration Guaifenesin/Dextromethorphan 10 ml 06/30/21 13:39 Guaifenesin/Dextromethorphan 10 Ml Udc PO Q4H PRN Cough Ceftriaxone Sodium/Dextrose 1 gm in 50 mls @ 100 mls/hr 07/01/21 13:00 07/01/21 12:40 Rocephin 1 Gm/D5w 50 Ml IVPB Infused Q24H [facility] In[facility] Radiology Results: ITS Impressions Chest X-Ray 06/30/21 09:58 IMPRESSION: 1. New opacities in the right upper and bilateral mid and lower lung zones and favor COVID pneumonia over pulmonary edema. Chest CTA 06/30/21 11:54 IMPRESSION: 1. No evident pulmonary embolism with sensitivity decreased in some of the basilar subsegmental pulmonary arteries due to primarily to motion artifact. 2. Diffuse bilateral lung disease most consistent with COVID pneumonia. Abdomen Ultrasound 06/30/21 22:16 IMPRESSION: Limited evaluation of pancreas; otherwise unremarkable examination Labs Labs: Laboratory Results - last 24 hr 07/02/21 08/3
[2021-07-03 06:00] VITALS: BP 122/69; PULSE 72; RESP 16; TEMP 36.1; O2SAT 93
[2021-07-03 06:01] VITALS: O2SAT 92
[2021-07-03 07:19] LABS: Alanine Aminotransferase 113 U/L (4-35); Estimated CRCL calculation 72 ml/min; Estimated Glomerular Filt Rate > 60
[2021-07-03 07:25] LABS: INR 0.9; Prothrombin Time 12.5 Seconds (11.1-14.7)
--- NOTE | 2021-07-03 08:51 | PM.DS ---
DS: Admitting Diagnosis Admitting Diagnosis COVID pneumonia DS: Discharge Diagnosis Discharge Diagnosis (1) Pneumonia due to COVID-19 virus: Code(s): U07.1 - COVID-19; J12.82 - Pneumonia due to coronavirus disease 2018 Status: Acute (2) UTI (urinary tract infection): Code(s): N39.0 - Urinary tract infection, site not specified Status: Acute DS: Summary Hospital Course Hospital Course: This is a 66-year-old woman with no significant past medical history who presented to the emergency department on 06/30 with shortness of breath and weakness. She was diagnosed with COVID 06/20. She started having worsening cough and on presentation her oxygen saturation was in the upper 80s. She required oxygen support by nasal cannula. CT of her chest showed diffuse bilateral lung infiltrates consistent with COVID pneumonia. She was initially noted to have elevated liver function tests, and right upper quadrant ultrasound was done that was negative for any significant findings. Her liver function tests slowly improved but will need outpatient follow-up. Hepatitis panel was negative. During hospital stay her oxygen was weaned and she was able to be on room air while maintaining adequate saturation. During her stay she was noted to urinary tract infection, initiated on ceftriaxone, urine culture grew E coli. She will discharge on Augmentin to finish a 5 day course. Time Spent with Patient Time attestation: Total time spent providing and/or coordinating discharge services: 35 Exam Narrative: Gen: Alert, NAD Abd: Soft, NT, ND Heart: RRR Lungs: CTAB Ext: No bilateral lower extremity edema DS: Data Data Completed and Pending Labs on day of discharge: Labs from last 24 hours 07/03/21 07/03/21 06:12 06:12 PT 12.5 INR 0.9 Creatinine 0.60 L Estim Creat Clear Calc 72 Estimated GFR > 60 ALT 113 H Preliminary micro results at discharge 06/30/21 14:48 Blood Culture - Preliminary Blood 06/30/21 14:48 Blood Culture - Preliminary Blood Discharge Plan Discharge Discharging Clinician: Isa Cintron Anticipated Discharge Date/Time: 07/03/21 09:27 Patient Disposition: Home, Self-Care Activity: as tolerated Diet: regular Discharge Instructions: 1. Follow up with primary provider within 1-2 weeks of discharge to ensure continued clinical improvement along with recheck of liver function tests 2. Gradual increase in activity as tolerated with no significant exertion over the next 1-2 weeks as recommended 3. Continue antibiotic for urinary tract infection for 3 more days Patient Instructions: Antibiotic Form, Shortness of Breath (GEN), COVID-19 (Coronavirus Disease 2019) (DC) Stand Alone Forms: General Discharge Information Follow-up/Referrals: Sonny Bills MD [Primary Care Provider] - (Post hospital 1-2 weeks of discharge) Discharge Medications: New amoxicillin-pot clavulanate 875-125 mg tablet 1 tablet PO Q12H Qty: 6 RF: 0 Continued albuterol sulfate 90 mcg/actuation HFA aerosol inhaler 2 puff inhalation QID PRN (Reason: shortness of breath or wheezing) Qty: 6.7 RF: 0 Date of admission: 06/30/21 12:28 Primary Care Provider: Sonny Bills Admitting Provider: Isa Cintron Attending physician on admission: Isa Cintron Condition: Serious Quality VTE Prophylaxis VTE prophylaxis: pharmacologic ordered
[2021-07-03] MEDS: DEXAMETHASONE 2 MG TABLET 6 MG PO (09:25)
[2021-07-03] MEDS: ENOXAPARIN 40 MG/0.4 ML SYRINGE SUB-Q (09:25)
[2021-07-03] MEDS: ALBUTEROL SULFATE (*SP) INHALER 2 PUFF INHALATION (10:00)
--- NOTE | 2021-07-03 11:27 | PCPTNOTE ---
Attempted PT Eval. Pt being discharged to home.
== END 2021-07-03 12:00 | disposition home or self-care (01) | DRG 177 ==
LOC: ANHED 09:52 → ANH3MEDSUR 13:15
PROVIDERS: Nurse Practitioner; Admitting Provider Internal Medicine Nephrology; Emergency Provider General Practice; PCP Family Medicine; Visit Provider Internal Medicine Nephrology
DX: U07.1 COVID-19 (principal); J12.82 Pneumonia due to coronavirus disease 2019; N39.0 Urinary tract infection, site not specified; B96.20 Unspecified Escherichia coli [E. coli] as the cause of diseases classified elsewhere; R74.8 Abnormal levels of other serum enzymes; Z78.9 Other specified health status; Z79.899 Other long term (current) drug therapy
CPT/HCPCS: 36415; 36600; 71045; 71275; 76705; 80053; 80074; 81001; 82565; 82728; 82805; 82948; 83605; 83735; 83880; 84460; 84484; 85025; 85380; 85610; 85730; 86140; 87040; 87077; 87086; 87088; 87186; 93005; 94640; 96360; 96361; 97165; 99285; A9270; J0696; J1650; J7030; J8540; Q9967

== ENCOUNTER 2022-07-31 07:31 | Emergency (ER) | payer OTHER, SELFPAY ==
[2022-07-31] VITALS (7 sets, daily range): BP systolic 121–141; BP diastolic 69–92; PULSE 67–93; RESP 14–18; TEMP 36.6; O2SAT 96–99
--- NOTE | ~2022-07-31 | XR_ITS ---
EXAMINATION: XR chest 2V DATE: 07/31/2022 08:10 INDICATION: Dizziness. Nausea. Weakness. TECHNIQUE: Frontal and lateral views of the chest were obtained. COMPARISON: Chest single view 9 06/30/2021, chest CT 06/30/2021 FINDINGS: There are mild airspace opacities in the lower lung zones. No pleural effusion or pneumotho rax. The heart size is normal. IMPRESSION: 1. Mild airspace opacities in the lower lung zones, consistent with atelectasis/scarring versus pneum onia. Reviewed, dictated and finalized at location A. IMPRESSION: 1. Mild airspace opacities in the lower lung zones, consistent with atelectasis /scarring versus pneumonia.
--- NOTE | ~2022-07-31 | CT_ITS ---
EXAMINATION: CT brain wo con DATE: 07/31/2022 08:03 INDICATION: Dizziness. TECHNIQUE: Computed tomography (CT) of the head was performed without intravenous contrast. The mA wa s adjusted according to patient size. Iterative reconstruction technique was employed. The dose-lengt h product was 605.33 mGy-cm. COMPARISON: None FINDINGS: There is no intracranial hemorrhage, acute infarction, or abnormal intracranial mass lesion . The ventricles are normal in size. The orbits are normal. There is mild mucosal thickening in the e thmoid sinuses. The mastoid air cells are normal. IMPRESSION: 1. Normal brain. Reviewed, dictated and finalized at location A. IMPRESSION: 1. Normal brain.
--- NOTE | 2022-07-31 07:43 | ECG_ITS ---
Measurements Intervals [place] Rate: 67 P: 14 NM: 130 QRS: 29 QRSD: 90 T: -19 QT: 367 QTc: 389 Interpretive Statements SINUS RHYTHM BORDERLINE ST-T WAVE ABNORMALITY- ANT/INF LEADS BORDERLINE ECG COMPARED TO ECG 06/30/2021 09:28:17 HEART RATE HAS DECREASED Electronically Signed On 07-31-2022 7:58:02 CDT by Mukund Heart D.O.
--- NOTE | 2022-07-31 07:53 | ED.DIZZY ---
HPI - Dizziness General Chief Complaint: Dizziness Stated Complaint: dizzy Time Seen by Provider: 07/31/22 07:34 Source: RN notes reviewed History of Present Illness HPI Narrative: Patient presents emergency department from home for dizziness. Patient states that dizziness began upon awaking this morning. States she went to bed at 8:30 PM last night with no episodes and woke up at 630 this morning with dizziness states that dizziness is worse with laying flat and movement of the head and feels like the room is spinning she notes mild nausea with the symptoms but denies any nausea at this time. She denies any vision changes denies any numbness or tingling of the extremities denies any unilateral weakness Related Data Allergies Allergy/AdvReac Type Severity Reaction Status Date / Time nitrofurantoin Allergy Unknown Unknown Verified 07/31/22 07:42 albuterol AdvReac Mild Rash Verified 07/31/22 07:42 diphenhydramine AdvReac Mild Nervousness Verified 07/31/22 07:42 prednisone AdvReac Mild HYPER, Verified 07/31/22 07:42 UNABLE TO SLEEP/FOCUS Review of Systems Review of Systems: Gen.: Denies fevers or chills Eyes: Denies eye pain or visual change ENT: Denies congestion Respiratory: Denies shortness of breath or cough CV: Denies chest pain or palpitations GI: Denies abdominal pain emesis reports intermittent nausea Musculoskeletal: Denies back pain or muscle pain Neuro: See HPI Skin: Denies rash Except as documented, all other systems reviewed and negative [facility] Past Medical History Medical History Mild intermittent reactive airway disease without complication Person under investigation for COVID-19 Surgical History Surgical History History of hysterectomy (~2000) Hx of appendectomy (~1962) Family History Family History Grandparent Hypertension Social History Social History Social History: The patient lives with her Edwar. She would like for Edwar to be her surrogate decision maker and she desires to be a full code. 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 She has no children. Lifelong nonsmoker and does not use alcohol. No marijuana or illicit drugs. Alcohol intake: never Substance use: never Substance use type: does not use Additional living arrangements comments: Gender identity (if verbalized by the patient): Female Spiritual care concerns: No Exam Narrative: APPEARANCE: No acute distress, nontoxic, resting in bed HEENT: Normocephalic, atraumatic, OMM, TMs clear bilaterally EYES: PERRL, EOMI NECK: Supple, nontender, full range of motion without pain, no meningismus RESPIRATORY: No respiratory distress, clear to auscultation bilaterally with no rhonchi wheezing or rales CARDIOVASCULAR: RRR s murmur ABDOMINAL: Soft, nontender, nondistended MUSCULOSKELETAL: Moves all extremities. No clubbing, cyanosis or edema. NEURO: A and O ?3, following commands, speech normal, no facial droop,muscle strength 5 out of 5 bilateral upper and lower extremities no pronator drift SKIN:: Warm, dry. Normal Color PSYCHIATRIC: Normal affect/mood Course Course Emergency Course: I did review the patient's chest x-ray she has had no cough no fever work-up with dizziness this morning feel this is likely atelectasis scarring and not pneumonia Patient notes mild improvement following meclizine and was given Valium patient now states resolution of dizziness able to get up and ambulate in ED with no difficulty Discussed with patient results of workup and diagnosis. Discussed need for follow-up with primary care, proper use of medication, and reasons to return to the emergency department. Patient understands and agrees to current treatment plan Vital Signs Vital signs:
--- NOTE | 2022-07-31 08:00 | PC.NURSE ---
Pt to CT scan and XRAY via stretcher at this time.
[2022-07-31 08:08] LABS: Alanine Aminotransferase 17 U/L (6-35); Albumin Level 4.3 g/dL (3.5-5.1); Alkaline Phosphatase 83 U/L (38-126); Anion Gap 12 mmol/L (8-16); Aspartate Amino Transferase 22 U/L (14-36); Bilirubin,Total 0.5 mg/dL (0.2-1.3); Blood Urea Nitrogen 14 mg/dL (7-17); Calcium 9.4 mg/dL (8.4-10.2); Carbon Dioxide 29 mmol/L (22-30); Chloride 102 mmol/L (98-107); Estimated CRCL calculation 53 ml/min; Estimated Glomerular Filt Rate > 60; Glucose 99 mg/dL (65-110); Sodium 143 mmol/L (137-145)
[2022-07-31] MEDS: MECLIZINE HCL 25 MG TABLET PO (08:16)
[2022-07-31 08:20] LABS: Troponin I < 0.012 ng/mL (0.000-0.034)
[2022-07-31 08:27] LABS: Basophils Absolute Auto 0.1 K/mm3 (0.0-0.1); Basophils Percent Auto 1.7 % (0.2-1.2); Eosinophils Absolute Auto 0.2 K/mm3 (0-0.3); Eosinophils Percent Auto 3.3 % (0-4.4); Hematocrit 48.3 % (37.0-47.0); Hemoglobin 15.7 g/dL (12.0-15.0); Immature Granulocyte Absolute 0.03 K/mm3 (0.00-0.031); Immature Granulocyte Percent A 0.7 % (0-0.5); Lymphocytes Absolute Auto 1.08 K/mm3 (0.9-3.2); Lymphocytes Percent Auto 23.4 % (18.3-44.2); Mean Corpuscular HGB Conc 32.5 g/dl (32-36); Mean Corpuscular Hemoglobin 30.8 pg (26-34); Mean Corpuscular Volume 94.9 fl (80-100); Mean Platelet Volume 11.3 fl (7.4-10.4); Monocytes Absolute Auto 0.5 K/mm3 (0.1-0.6); Monocytes Percent Auto 10.6 % (2.6-8.5); Neutrophils Absolute Auto 2.8 K/mm3 (1.3-6.7); Neutrophils Percent Auto 60.3 % (45.5-73.1); Platelet Count Result 211 k/mm3 (150-375); Red Blood Count 5.09 M/mm3 (4.2-5.4); Red Cell Distribution Width 12.7 % (11.5-14.5); White Blood Count 4.6 K/mm3 (4.5-10.0)
[2022-07-31 09:09] LABS: Appearance Urine Clear (Clear); Bilirubin Urine Negative (Negative); Blood Urine Negative (Negative); Color Urine Yellow (Yellow); Glucose Urine UA Negative (Negative); Ketones Urine Negative (Negative); Leukocyte Esterase Ur 1+ LEU/UL (Negative); Nitrate Urine Negative (Negative); Protein Urine Negative (Negative); Urobilinogen Urine 0.2 mg/dL (<2.0); pH Urine 8.5 (5.0-9.0)
[2022-07-31 09:14] LABS: Bacteria Urine Trace /hpf; Squamous Epithelial Cell Urine Occasional /hpf (Few)
[2022-07-31 09:51] LABS: Add Urine Microscopic? YES
[2022-07-31] MEDS: diazePAM (*CRX) 2 MG TABLET PO (10:39)
--- NOTE | 2022-07-31 11:23 | PC.NURSE ---
pt able to ambulate without assist
== END 2022-07-31 11:55 | disposition home or self-care (01) ==
PROVIDERS: Emergency Provider Emergency Medicine; PCP Family Medicine
DX: R42 Dizziness and giddiness (principal); N39.0 Urinary tract infection, site not specified; J45.909 Unspecified asthma, uncomplicated
CPT/HCPCS: 36415; 70450; 71046; 80053; 81001; 84484; 85025; 93005; 96365; 99284; A9270; J0696

== ENCOUNTER 2022-10-18 22:35 | Emergency (ER) | payer OTHER, SELFPAY ==
[2022-10-18 22:44] VITALS: BP 145/83; PULSE 94; TEMP 36.6; O2SAT 100
--- NOTE | 2022-10-19 00:19 | ED.DENTAL ---
HPI - Dental/Oral General Chief complaint: Dental/Oral <Ragini Jackson PA-C - Last Filed: 10/19/22 00:29> Stated complaint: dental pain <Ragini Jackson PA-C - Last Filed: 10/19/22 00:29> Time Seen by Provider: 10/18/22 23:56 <Ragini Jackson PA-C - Last Filed: 10/19/22 00:29> Source: patient <Ragini Jackson PA-C - Last Filed: 10/19/22 00:29> Mode of arrival: ambulatory <ARAVIND Gutierrez Last Filed: 10/19/22 00:29> Limitations: no limitations <Ragini Jackson PA-C - Last Filed: 10/19/22 00:29> History of Present Illness HPI Narrative: This is a 67 year old female that presents to the ER for dentalgia present over the last week. Reports she is currently following with her dentist for this. She is on oxacillin. She has been taking her antibiotic as prescribed. Reports she is scheduled for a root canal on Friday. Denies fever, erythema, edema, or difficulty swallowing. <Ragini Jackson PA-C - Last Filed: 10/19/22 00:29> MD Complaint: tooth pain <ARAVIND Gutierrez Last Filed: 10/19/22 00:29> Location: Tooth # (30) <ARAVIND Gutierrez Last Filed: 10/19/22 00:29> Related Data Allergies/adverse reactions: Allergies Allergy/AdvReac Type Severity Reaction Status Date / Time nitrofurantoin Allergy Unknown Unknown Verified 10/18/22 22:50 albuterol AdvReac Mild Rash Verified 10/18/22 22:50 diphenhydramine AdvReac Mild Nervousness Verified 10/18/22 22:50 prednisone AdvReac Mild HYPER, Verified 10/18/22 22:50 UNABLE TO SLEEP/FOCUS <ARAVIND Gutierrez Last Filed: 10/19/22 00:29> Review of Systems Review of Systems: CONSTITUTIONAL: Denies fever EYES: Denies redness, or discharge. ENT: Reports dentalgia CARDIOVASCULAR: Denies edema. RESPIRATORY: Denies dyspnea. GASTROINTESTINAL: Denies vomiting SKIN: Denies rash MUSCULOSKELETAL: Denies myalgia. NEUROLOGIC: Denies weakness. PSYCHIATRIC: Denies anxiety <Ragini Jackson PA-C - Last Filed: 10/19/22 00:29> All systems reviewed & are unremarkable except as noted in HPI and below <Ragini Jackosn PA-C - Last Filed: 10/19/22 00:29> [facility] Past Medical History Medical History: Medical History Environmental allergies Hx of cyst of breast (~1974) s/p - excision Pneumonia due to COVID-19 virus (~06/2021) Vertigo Vitamin D deficiency (~09/2021) <Ragini Jackson PA-C - Last Filed: 10/19/22 00:29> Surgical History Surgical History: Surgical History History of hysterectomy (~2000) Hx of appendectomy (~1962) <Ragini Jackson PA-C - Last Filed: 10/19/22 00:29> Family History Family History: Family History Grandparent Hypertension <Ragini Jackson PA-C - Last Filed: 10/19/22 00:29> Social History Social History: Social History Social History: The patient lives with her Edwar. She would like for Edwar to be her surrogate decision maker and she desires to be a full code. 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 She has no children. Lifelong nonsmoker and does not use alcohol. No marijuana or illicit drugs. Smoking status: Never smoker Alcohol intake: never Substance use: never Substance use type: does not use Lack of Transportation: No Lack of Food: Never True Current Housing: I Have Housing Concerned About Future Housing: No Difficulty Paying Gas/Electric Bills: No Difficulty Paying for Meds: No Currently Unemployed: No Education: High School Diploma/GED Additional living arrangements comments: Gender identity (if verbalized by the patient): Female Sexual Orientation (if Verbalized by the Patient): Straight or Heterosexual Spiritual care concerns: No Agree t
[2022-10-19 00:35] VITALS: PULSE 76; RESP 16; O2SAT 97
[2022-10-19] MEDS: HYDROcodone/acetaminophen (*CRX) 5-325 MG TABLET 1 TAB PO (00:38)
== END 2022-10-19 00:44 | disposition home or self-care (01) ==
PROVIDERS: Emergency Provider Emergency Medicine; PCP Family Medicine
DX: K08.89 Other specified disorders of teeth and supporting structures (principal); E55.9 Vitamin D deficiency, unspecified; Z86.16 Personal history of COVID-19; Z87.01 Personal history of pneumonia (recurrent); Z90.710 Acquired absence of both cervix and uterus
CPT/HCPCS: 99283; A9270

== ENCOUNTER 2024-03-17 07:56 | Outpatient (CLI) | payer OTHER, SELFPAY ==
--- NOTE | ~2024-03-17 | DEXA_ITS ---
Bone Density Report Name: CLAUDIO CASAS Age: 68 Sex: Female Ethnicity: White Date of : 1955 Indication: postmenopausal; screening for osteoporosis; history of glucocorticoids; hysterectomy; Referring Provider: PADMA FORREST Study: Bone densitometry was performed. Exam Date: March 17, 2024 Accession number: [id number] Bone Density: Region BMD T-score Z-score Classification AP Spine(L1-L4) 0.908 -1.3 0.8 Osteopenia Femoral Neck (Left) 0.779 -0.6 1.1 Normal Total Hip (Left) 0.948 0.0 1.5 Normal Femoral Neck (Right) 0.806 -0.4 1.3 Normal Total Hip (Right) 0.928 -0.1 1.3 Normal Total Hip Mean 0.938 -0.1 1.4 Normal World Health Organization criteria for BMD impression classify patients as: Normal (T-score at or above -1.0), Osteopenia (T-score between -1.0 and -2.5), or Osteoporosis (T-score at or below -2.5). 10-year Fracture Risk(1): Major Osteoporotic Fracture 12% Hip Fracture 1.1% Reported Risk Factors: [place] (), Neck BMD=0.779, BMI=30.4, glucocorticoids (1) FRAX(R) Version 3.08. Fracture probability calculated for an untreated patient. Fracture probability may be lower if the patient has received treatment. Clinical Information Provided by Patient: Has taken Glucocorticoids Has the following medical conditions: Hysterectomy Patient maximum height was 61 Menopause Age: 42 No regular weight bearing exercise Does not regularly consume dairy products Drinks caffeinated beverages Onset of menses at age 13 Number of children 0 Impression: The patient has low bone mass, based on the Total Spine T-score. The patient has an estimated ten-year risk of hip fracture of 1.1% and an estimated ten-year risk of major fracture of 12%, based on the WHO FRAX algorithm. The patient has risk factors, including: history of glucocorticoid therapy. Discussion: BONE DENSITY IS LOW AT ONE OR MORE SKELETAL SITES. This patient's lowest T-score is low at one or more skeletal sites. It meets the World Health Organization's (WHO) criteria for ?low bone mass? (T-score between -1.0 and -2.5). The patient's 10-year risk of fracture as calculated by FRAX is less than the threshold where pharmacological therapy is recommended by the National Osteoporosis Foundation (NOF). However, all treatment decisions require clinical judgment and consideration of individual patient factors, including patient preferences, comorbidities, previous drug use, risk factors not captured in the FRAX model (e.g., frailty, falls, vitamin D deficiency, increased bone turnover, interval significant decline in bone density) and possible under or overestimation of fracture risk by FRAX. The patient should follow a healthful lifestyle (good nutrition with adequate calcium and vitamin D, and appropriate weight-bearing
--- NOTE | ~2024-03-17 | MM_ITS ---
EXAMINATION: MM screening trini BI w hui HISTORY: Screening mammogram TECHNIQUE: Craniocaudal and mediolateral oblique 3-D tomosynthesis images were obtained and synthetic 2-D images were generated. CAD analysis was submitted and interpreted. COMPARISON: No prior mammogram is available for comparison at this institution. BREAST PARENCHYMAL COMPOSITION: There are scattered areas of fibroglandular density. FINDINGS: Multiple scattered bilateral benign calcifications. There is no evidence of suspicious mass , calcification, or architectural distortion to suggest malignancy in either breast. IMPRESSION: 1. No mammographic evidence of malignancy. 2. Recommend routine screening mammography in one year. BI-RADS Category 2: Benign finding(s). Reviewed, dictated and finalized at location A.
== END 2024-03-17 07:57 | disposition home or self-care (01) ==
LOC: ANHIMG 08:03
PROVIDERS: PCP Family Medicine; Visit Provider Family Medicine
DX: Z12.31 Encounter for screening mammogram for malignant neoplasm of breast (principal); Z78.0 Asymptomatic menopausal state; M85.88 Other specified disorders of bone density and structure, other site
CPT/HCPCS: 77063; 77067; 77080

== ENCOUNTER 2024-06-18 01:39 | Day surgery (SDC) | payer OTHER, SELFPAY ==
[2024-06-16 14:26] VITALS: BMI 29.5
--- NOTE | 2024-06-16 14:51 | PC.NURSE ---
Report to the Outpatient Waiting Room, entrance under the green pavilion located off [facility], at time __7:30AM on date ___06/18/24____. Planned Procedure Time: __9:30AM . Time changes happen often and if your time is changed the preop area will call you the afternoon before. - You and your visitor will be asked to self-screen and do not enter if you have any COVID symptoms. - A mask is optional within the hospital at this time. Patients may have clear liquids (water, carbonated beverages, clear teas, apple juice) until 3 hours prior to surgery with a maximum of 20 ounces. - No food from midnight until time of surgery. Take the following medications with a SIP of water the morning of surgery: ___NONE DO NOT STOP ANY OF YOUR OTHER PRESCRIPTION MEDICATIONS PRIOR TO SURGERY ?EXCEPT THE FOLLOWING Medications to discontinue per physician ___HOLD ALL VITAMINS/SUPPLEMENTS 3 DAYS PRE-OP PER ANESTHESIA- STARTING NOW Please no make-up, nail icelandic, hairspray, perfume, deodorant, or body powder the day of surgery. No jewelry (including any body piercings) or valuables the day of surgery, leave them at home. Please take a shower or bath the night before, or the morning of, surgery with an antibacterial soap. Wear comfortable, loose fitting clothing. - Jewelry must be removed prior to entering the operating room. Rings and piercings that are not removed may be cut off. - The hospital will not accept responsibility for valuables. - Please leave all valuables, including medications, at home the day of surgery. If you are going home after surgery, a licensed driver lifter of sanitation truck must drive you home. - NO public transportation without another adult if you receive anesthesia. - We recommend that an adult stay with you for 24 hours following discharge. - We also recommend that you do not drive, make important decision, drink alcoholic beverages, or take any drugs that were not prescribed by your health care provider for at least 24 hours after your discharge time. Follow any additional instructions given to you from your surgeon. If you or anyone in your household have experienced Covid symptoms in the past week, please notify your surgeon or the nurse liaison at the phone number below for possible testing. Telephone instructions given to ____PATIENT and asked if any additional questions and then verbalized understanding. Patient advised to call surgeon office or pre surgery nurse liaison [phone] if any additional questions.
[2024-06-18] VITALS (9 sets, daily range): BP systolic 107–125; BP diastolic 50–73; PULSE 58–80; RESP 12–18; TEMP 36.3–36.4; O2SAT 91–98; BMI 27.8
--- NOTE | ~2024-06-18 | XR_ITS ---
EXAMINATION: XR surgery orthopedic DATE: 06/18/2024 11:37 INDICATION: Arthritis of right first metatarsophalangeal joint. TECHNIQUE: 2 intraoperative spot fluoroscopic views of right foot were obtained. I was not present. F luoroscopy the time was 30 seconds. COMPARISON: Right foot radiographs 12/03/2010 FINDINGS: There are changes of arthrodesis of first metatarsophalangeal joint with plate and screws. There are osteotomies of the necks of the second and third metatarsals with screw fixation. IMPRESSION: 1. Arthrodesis of first metatarsophalangeal joint. 2. Osteotomies of the second and third metatarsals with screw fixation. Reviewed, dictated and finalized at location A.
--- NOTE | 2024-06-18 07:07 | WPDHPUPDATE1 ---
History and Physical Update Update Date/Time: 06/18/24 07:07 History and Physical has been reviewed, including an updated exam of the patient. There are NO changes in the patient's condition. Risks, benefits, and alternatives have been discussed and questions answered. Patient agrees to proceed with procedure.
[2024-06-18] MEDS: LACTATED RINGERS 1,000 ML 30 ML IV CONT ×2 (08:00→12:15)
--- NOTE | 2024-06-18 08:05 | WPDANESEPPF ---
Anes - Initial Pre Proc Eval Procedure: Operation Date: 06/18/24 09:30 Proposed Procedures p Arthrodesis of First Metatarsophalangeal Joint Right Foot, Nigel Shortening Second and Third Metatarsal Osteotomy Right Foot - Ermias Ram Jr., DPM Date/Time: 06/18/24 08:05 Surgeon: Ermias Ram Jr., DPM Pre Op Diagnosis: Arth 1st MPJ rt foot, Metatarsalgia rt foot Patient Data Age: 69 Gender: F Height: 1.55 m Weight: 71 kg Allergies Allergy/AdvReac Type Severity Reaction Status Date / Time albuterol Allergy Mild Rash Verified 06/16/24 14:24 nitrofurantoin Allergy Unknown Rash Verified 06/16/24 14:24 diphenhydramine AdvReac Mild Nervousness Verified 06/16/24 14:24 prednisone AdvReac Mild HYPER, Verified 06/16/24 14:24 UNABLE TO SLEEP/FOCUS Home Medications Medication Instructions Recorded Confirmed Type cetirizine 10 mg tablet (Zyrtec) 10 mg PO DAILY PRN Allergic 09/29/23 06/16/24 History Symptoms calcium carbonate (Calcium 600) 600 mg PO DAILY #90 tabs 03/18/24 06/16/24 Rx cholecalciferol (vitamin D3) 50 50 mcg PO DAILY #90 tabs 05/10/24 06/16/24 Rx mcg (2,000 unit) tablet acetaminophen 500 mg capsule 1,000 mg PO Q6H PRN Pain 06/16/24 06/16/24 History Patient hx anesthesia problems: none Family hx anesthesia problems: none Results Review: All pre-operative results and documents have been reviewed as part of the pre-operative evaluation. FOR[facility]LY [facility], [facility] Past Medical History Medical History Environmental allergies Hx of cyst of breast (~1974) s/p - excision Pneumonia due to COVID-19 virus (~06/2021) Vertigo Vitamin D deficiency (~09/2021) Surgical History Surgical History History of hysterectomy (~2000) Hx of appendectomy (~1962) Family History Family History Grandparent Hypertension Social History Social History Social History: The patient lives with her Edwar. She would like for Edwar to be her surrogate decision maker and she desires to be a full code. 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 She has no children. Lifelong nonsmoker and does not use alcohol. No marijuana or illicit drugs. Smoking status: Never smoker Alcohol intake: never Substance use: never Substance use type: does not use Lack of Transportation: No Lack of Food: Never True Current Housing: I Have Housing Concerned About Future Housing: No Difficulty Paying Gas/Electric Bills: No Difficulty Paying for Meds: No Currently Unemployed: No Education: High School Diploma/GED Living arrangements: with family Additional living arrangements comments: HUSB & 2 GRANDCHILDREN Occupation/Education: occupation Gender identity (if verbalized by the patient): Female Sexual Orientation (if Verbalized by the Patient): Straight or Heterosexual Spiritual care concerns: No Agree to blood products: Yes Anes - Eval Final PreProcedure Day of Procedure 06/18/24 08:05 Patient weight: overweight Heart: regular rate and rhythm Lungs: clear to auscultation Airway: Mallampati scale class II Neurological: alert and oriented Last oral intake: >/= 8 hours ASA classification: II Emergent: no Anesthetic plan: proceed Anesthesia type and monitoring: general LMA and standard monitoring Results Review: All pre-operative results and documents have been reviewed as part of the pre-operative evaluation. Informed Consent: The patient's anesthetic plan and its attendant risks and benefits were discussed with the patient/family/POA. Questions were solicited and answers provided to the satisfaction of the patient/family/POA.
--- NOTE | 2024-06-18 09:39 | WPDANESPNB ---
Anes - Peripheral Nerve Block Date/Time: 06/18/24 09:39 I have discussed with the patient/family/POA the placement of a peripheral nerve block for post-operative pain management, including associated risks, benefits, complications, and side effects. Alternative methods of post-operative analgesia were detailed. Questions were solicited and answers provided to the satisfaction of the patient/family/POA. Time-Out: A pre-procedural Time-Out was completed immediately before starting the procedure and confirmed: Patient Identification, Site, Procedure, Patient Position and the Availability of Requisite Equipment. Clinical Indications: Acute post-operative pain management requested by the operative surgeon. Nerve Block Insertion Note Anes-nerve block: posterior fossa sciatic (and saphenous) right Patient position: supine Skin prep: chlorhexidine Needle: 22 gauge, stimulating, insulated echogenic needle. Needle length: 80 mm Injectate: bupivacaine 0.5% with epi 5 mcg/ml (30cc sciatic, 7 cc saphenous) and dexamethasone (mg) (8) Observations: tolerated well Complications: none Procedure start time:: Procedure end time::
[2024-06-18] MEDS: ceFAZolin 2 GM/D5W 50 ML 2 GM/50 ML BAG IVPB (10:09)
--- NOTE | 2024-06-18 11:47 | W.PM.PROC2 ---
Procedure Note - Detailed Date of Procedure 06/18/24 Pre-op Diagnosis 1. 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 Metatarsalgia sub 2nd and 3rd metatarsal phalangeal joint right foot Post-op Diagnosis Same Procedure Performed 1. Arthrodesis of the first metatarsal phalangeal joint right foot 2. Nigel shortening second and third metatarsals right foot Surgeon Ermias Ram Jr., DPM Anesthesia General and Regional (Popliteal fossa block) Indications Painful right forefoot Findings Severe joint degeneration to the 1st metatarsal phalangeal joint Description of Procedure PROCEDURE IN DETAIL: Under mild sedation, the patient was brought into the operating room, placed on the operating table in supine position. A pneumatic ankle tourniquet was placed about the patient's ipsilateral ankle. Following general anesthesia and a popliteal fossa block, the foot was then scrubbed, prepped, and draped in the usual aseptic manner. An Esmarch bandage was then used to exsanguinate the patient's foot and the pneumatic ankle tourniquet was then inflated. Surgery began in the following manner: Attention was directed to the dorsal medial aspect of the 1st metatarsophalangeal joint where there was a medial malalignment of the hallux with loss of motion. The incision was made starting along the central shaft of the 1st metatarsal and extending just proximal to the interphalangeal joint of the hallux. The incision was continued deep down through the subcutaneous tissues using sharp and blunt dissection. All bleeders were cauterized as necessary. At this point, the dissection was continued down to the level of the periosteum and capsular structures overlying the 1st metatarsophalangeal joint. A full length periosteum and capsular incision was made just medial to the extensor hallucis longus tendon. The periosteum and capsular structures were freed from the base of the proximal phalanx as well as the distal 1st metatarsal. At this point, the 1st metatarsophalangeal joint was identified. There was near complete loss of articular cartilage to the head of the 1st metatarsal as well as the base of the proximal phalanx. There was significant broadening and hypertrophy of the 1st metatarsophalangeal joint. Utilizing a sagittal bone saw, the hypertrophied 1st metatarsal was resected dorsally, medially, and laterally. A power bur was used to make sure that there were no rough edges and also to further debride the hypertrophic 1st metatarsal. Next, a rongeur was used to resect the hypertrophic base of the proximal phalanx. At this point, the reamer system for the Maxforce system was used to denude the degenerative cartilage from the head of the 1st metatarsal as well as the base of the proximal phalanx. The cartilage and subchondral bone were fully debrided utilizing the reamer system until healthy bleeding bone was noted. Next, a 2-0 drill bit was used to further fenestrate the head of the 1st metatarsal as well as the base of the proximal phalanx in order to allow fusion across the 1st metatarsophalangeal joint. Next, a guide wire for an Arthrex 3.0 Quickfix screw was driven from the medial aspect of the base of the proximal phalanx into the head of the 1st metatarsal with excellent compression noted. A large steel plate was used to make sure that the hallux was in a rectus position both in the sagittal plane as well as the frontal plane. Excellent position of the hallux was noted. Next, a Maxforce plate was placed atop the 1st metatarsophalangeal joint held in position with [place] wires. Utilizing standard principles and techniques, the 3 distal drill holes were drilled and three 3.0 mm mm fully-threaded locking screws were driven from dorsal to plantar holding the distal aspect of the plate intact. At this point, the Maxforce compression system was utilized from dorsal distal to proximal plantar across the 1st metatarsophalangeal joint with excel
== END 2024-06-18 14:22 | disposition home or self-care (01) ==
PROVIDERS: PCP Family Medicine; Visit Provider Podiatrist Foot & Ankle Surgery
PROC: (CPT 28750; principal; 2024-06-18 09:30)
DX: M77.41 Metatarsalgia, right foot (principal); M19.071 Primary osteoarthritis, right ankle and foot; G89.18 Other acute postprocedural pain; E55.9 Vitamin D deficiency, unspecified
CPT/HCPCS: 28750; 28308 ×2; 64450; 64445; 99199; C1713; C1769; J0690; J1100; J2250; J3010; J7120

== ENCOUNTER 2025-04-29 07:58 | Emergency (ER) | payer OTHER, MEDICARE, SELFPAY ==
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
[2025-04-29 08:09] VITALS: BP 135/78; PULSE 79; RESP 14; O2SAT 97
[2025-04-29 08:11] VITALS: BP 135/78; PULSE 85; RESP 16; TEMP 36.6; O2SAT 95
--- NOTE | 2025-04-29 08:49 | ECG_ITS ---
Test Date: 2025-04-29 09:00:32 Measurements Intervals [place] Rate: 70 P: 38 ND: 158 QRS: 24 QRSD: 88 T: -7 QT: 364 QTc: 393 Interpretive Statements SINUS RHYTHM POSSIBLE LEFT ATRIAL ENLARGEMENT LOW QRS VOLTAGE IN PRECORDIAL LEADS ST-T WAVE ABNORMALITY IN ANT/INF LEADS- CONSIDER ISCCHEMIA ABNORMAL ECG No previous ECG available for comparison Electronically Signed On 04-29-2025 09:09:27 CDT by Mukund Heart D.O.
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
--- NOTE | 2025-04-29 09:14 | PC.NURSE ---
Pt reports she has tylenol in her purse and took 1000mg of her supply
[2025-04-29 09:19] LABS: Add Urine Microscopic? YES; Appearance Urine Clear (Clear); Bacteria Urine 4+ /hpf; Bilirubin Urine Negative (Negative); Blood Urine Negative (Negative); Color Urine Yellow (Yellow); Glucose Urine UA Negative (Negative); Ketones Urine Negative (Negative); Leukocyte Esterase Ur 1+ LEU/UL (Negative); Nitrate Urine Positive (Negative); Non Pathogenic Casts 0-2; Protein Urine Negative (Negative); RBC Urine 0-2 /hpf (0-2); Specific Grav Ur 1.009 (1.001-1.035); Squamous Epithelial Cell Urine None Seen /hpf (Few); Urobilinogen Urine 0.2 mg/dL (<2.0)
[2025-04-29 09:36] LABS: Basophils Absolute Auto 0.1 K/mm3 (0.0-0.1); Basophils Percent Auto 0.9 % (0.2-1.2); Eosinophils Absolute Auto 0.1 K/mm3 (0-0.3); Eosinophils Percent Auto 1.6 % (0-4.4); Hematocrit 44.9 % (37.0-47.0); Hemoglobin 14.7 g/dL (12.0-15.0); Immature Granulocyte Absolute 0.03 K/mm3 (0.00-0.031); Immature Granulocyte Percent A 0.5 % (0-0.5); Lymphocytes Percent Auto 12.5 % (18.3-44.2); Mean Corpuscular HGB Conc 32.7 g/dl (32-36); Mean Corpuscular Hemoglobin 30.1 pg (26-34); Monocytes Absolute Auto 0.5 K/mm3 (0.1-0.6); Monocytes Percent Auto 8.1 % (2.6-8.5); Neutrophils Absolute Auto 4.9 K/mm3 (1.3-6.7); Neutrophils Percent Auto 76.4 % (45.5-73.1); Platelet Count Result 253 k/mm3 (150-375); Red Blood Count 4.88 M/mm3 (4.2-5.4); Red Cell Distribution Width 12.5 % (11.5-14.5); White Blood Count 6.4 K/mm3 (4.5-10.0)
[2025-04-29 09:47] LABS: Alanine Aminotransferase 18 U/L (6-35); Albumin Level 4.1 g/dL (3.5-5.1); Alkaline Phosphatase 89 U/L (38-126); Anion Gap 9 mmol/L (4-12); Aspartate Amino Transferase 27 U/L (14-36); Bilirubin,Total 0.5 mg/dL (0.2-1.3); Blood Urea Nitrogen 13 mg/dL (7-17); Calcium 9.7 mg/dL (8.4-10.2); Carbon Dioxide 25 mmol/L (22-30); Chloride 106 mmol/L (98-107); Estimated CRCL calculation 52 ml/min; Estimated Glomerular Filt Rate > 60; Glucose 107 mg/dL (65-110); Sodium 140 mmol/L (137-145); Total Protein 7.3 g/dL (6.3-8.2)
--- NOTE | 2025-04-29 11:39 | PC.NURSE ---
Pt refused CT scans. SOPHIE Ontiveros made aware.
[2025-04-29 15:58] VITALS: BP 134/78; PULSE 88; RESP 16; O2SAT 99
== END 2025-04-29 15:59 | disposition home or self-care (01) ==
PROVIDERS: Emergency Provider Emergency Medicine; PCP Family Medicine
DX: S51.812A Laceration without foreign body of left forearm, initial encounter (principal); S51.811A Laceration without foreign body of right forearm, initial encounter; S10.91XA Abrasion of unspecified part of neck, initial encounter; N39.0 Urinary tract infection, site not specified; N94.89 Other specified conditions associated with female genital organs and menstrual cycle; E55.9 Vitamin D deficiency, unspecified; M85.80 Other specified disorders of bone density and structure, unspecified site; Z86.16 Personal history of COVID-19; Z87.01 Personal history of pneumonia (recurrent); Z90.710 Acquired absence of both cervix and uterus; V43.52XA Car driver injured in collision with other type car in traffic accident, initial encounter; W22.11XA Striking against or struck by driver side automobile airbag, initial encounter; R94.31 Abnormal electrocardiogram [ECG] [EKG]; Q63.1 Lobulated, fused and horseshoe kidney; K44.9 Diaphragmatic hernia without obstruction or gangrene; K76.0 Fatty (change of) liver, not elsewhere classified
CPT/HCPCS: 36415; 70450; 70498; 71260; 74177; 80053; 81001; 85025; 87077; 87086; 87186; 93005; 99284; Q9967

== ENCOUNTER 2025-07-25 14:15 | Outpatient (CLI) | payer MEDICARE, SELFPAY | END 2025-07-25 14:16 | disposition home or self-care (01) | LOC: ANHSURGERY 14:21 | PROVIDERS: PCP Family Medicine; Visit Provider Obstetrics & Gynecology | DX: N83.8 Other noninflammatory disorders of ovary, fallopian tube and broad ligament (principal) | CPT/HCPCS: 36415; 86850; 86900; 86901 ==

== ENCOUNTER 2025-07-28 01:35 | Day surgery (SDC) | payer MEDICARE, SELFPAY ==
--- NOTE | 2025-07-22 13:29 | PC.NURSE ---
[facility] has started construction of its new state of the art ER which will open Spring 2026. With this, we anticipate parking may be a challenge for some our surgical patients and families. Parking spaces are limited but are available for all Surgical, obstetrics, and ER patients sharing this lot. If you arrive and find you are having a hard time finding a parking space, please note that we understand the challenges, please drive around the hospital and park near Hospital Entrance 1. When you enter this entrance, you can ask a volunteer to direct or take you back to the surgical waiting area to check in. We appreciate everyone?s understanding of these expected challenges while we build for your future. Report to the Outpatient Waiting Room, entrance under the green pavilion located off [address] [facility], at time __6 :30 am on date __07/28/25 . Planned Procedure Time: __8:30 am .? Time changes happen often and if your time is changed the preop area will call you the afternoon before. - You and your visitor will be asked to self-screen and do not enter if you have any COVID symptoms. Please call surgeon if you need to reschedule. - A mask is optional within the hospital at this time. Patients may have clear liquids (water, carbonated beverages, clear teas, apple juice) until 3 hours prior to surgery( 5:30 am) with a maximum of 20 ounces. - No food from midnight until time of surgery and no smoking, or chewing tobacco (or any form of nicotine). No chewing gum, candy or mints. - Take only the following medications with a SIP of water on the morning of surgery: ___NONE DO NOT STOP ANY OF YOUR OTHER PRESCRIPTION MEDICATIONS PRIOR TO SURGERY EXCEPT THE FOLLOWING Hold all vitamins and supplements for 3 days per anesthesiologist.LAST DOSE 07/24/25 Medications to discontinue per physician NONE Date to take last dose Please no make-up, nail japanese, hairspray, perfume, deodorant, or body powder the day of surgery.? No jewelry (including any body piercings) or valuables the day of surgery, leave them at home.? Please take a shower or bath the night before, or the morning of, surgery with an antibacterial soap.? Wear comfortable, loose fitting clothing.? Children are encouraged to wear pajamas. - Jewelry must be removed prior to entering the operating room.? Rings and piercings that are not removed may be cut off. - The hospital will not accept responsibility for valuables.? - Please leave all valuables, including medications, at home the day of surgery. If you are going home after surgery, a licensed stud driver must drive you home.? - NO public transportation without another adult if you receive anesthesia. - We recommend that an adult stay with you for 24 hours following discharge. - We also recommend that you do not drive, make important decision, drink alcoholic beverages, or take any drugs that were not prescribed by your health care provider for at least 24 hours after your discharge time. For Pediatric surgeries, we recommend two adults accompany the child home. Follow any additional instructions given to you from your surgeon. Telephone instructions given to __patient and asked if any additional questions and then verbalized understanding. Patient advised to call surgeon office or pre surgery nurse liaison [phone] if any additional questions.
[2025-07-22 13:42] VITALS: BMI 29.5
--- NOTE | 2025-07-26 11:45 | P.HP_ITS ---
H&P: HPI History of Present Illness Date/Time: 07/26/25 11:45 Chief Complaint: Right ovarian cyst pelvic pain Narrative: 7-year-old female admitted for a right oophorectomy and salpingectomy secondary to a [id number] cyst in the right her ovarian cancer markers are negative risks and benefits of the procedure reviewed including not exclusive of , aspiration pneumonia, bleeding, transfusion, perforation injury to bowel ureters or other internal organs with need for open laparotomy. She received the ACOG laparoscopy. She had all questions answered. She asked to proceed. Review of Systems Review of Systems: CONSTITUTIONAL: Denies fever EYES: Denies redness, or discharge. ENT: Reports dentalgia CARDIOVASCULAR: Denies edema. RESPIRATORY: Denies dyspnea. GASTROINTESTINAL: Denies vomiting SKIN: Denies rash MUSCULOSKELETAL: Denies myalgia. NEUROLOGIC: Denies weakness. PSYCHIATRIC: Denies anxiety All systems reviewed & are unremarkable except as noted in HPI and below PMFSH Past Medical History Medical History Osteopenia (~2023) Vertigo Hx of cyst of breast (~1974) s/p - excision Environmental allergies Vitamin D deficiency (~09/2021) Pneumonia due to COVID-19 virus (~06/2021) Surgical History Surgical History H/O foot surgery Right 06/2024 Hx of appendectomy (~1962) History of hysterectomy (~2000) Family History Family History Grandparent Hypertension Social History Social History Social History: The patient lives with her Edwar. She would like for Edwar to be her surrogate decision maker and she desires to be a full code. 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 She has no children. Lifelong nonsmoker and does not use alcohol. No marijuana or illicit drugs. Smoking status: Never smoker Alcohol intake: never Substance use: never Substance use type: does not use Lack of Transportation: No Lack of Food: Never True Current Housing: I Have Housing Concerned About Future Housing: No Difficulty Paying Gas/Electric Bills: No Difficulty Paying for Meds: No Currently Unemployed: No Education: High School Diploma/GED Living arrangements: with family Additional living arrangements comments: HUSB & 2 GRANDCHILDREN Occupation/Education: occupation Gender identity (if verbalized by the patient): Female Sexual Orientation (if Verbalized by the Patient): Straight or Heterosexual Spiritual care concerns: No Agree to blood products: Yes Meds Home Medications and Allergies Home Medications ?Medication ?Instructions ?Recorded ?Confirmed ?Type cetirizine 10 mg tablet (Zyrtec) 10 mg PO DAILY PRN Al lergic 09/29/23 07/22/25 History Symptoms acetaminophen 500 mg capsule 1,000 mg PO Q6H PRN Pain 06/16/24 07/22/25 History calcium carbonate (Calcium 600) 600 mg PO DAILY #90 ta bs 03/21/25 07/22/25 Rx cholecalciferol (vitamin D3) 50 50 mcg PO DAILY #90 ta bs 03/21/25 07/22/25 Rx mcg (2,000 unit) tablet cetirizine 5 mg-pseudoephedrine ER 1 tablet PO Q12H #1 0 tabs 04/21/25 07/22/25 Rx 120 mg tablet,extended release,12hr (Zyrtec-D) fluticasone propionate 50 2 spray intranasal DAILY #16 grams 04/21/25 07/22/25 Rx mcg/actuation nasal spray,suspension (Flonase Allergy Relief) acetaminophen 500 mg tablet 1,000 mg (2 x 500 mg) PO T ID PRN 04/29/25 07/22/25 Rx virginia 7 days #42 tabs cephalexin 500 mg capsule 500 mg PO Q12H #10 caps 04/0407/22/25 Rx methocarbamol 750 mg tablet 1,500 mg (2 x 750 mg) PO T ID #42 04/29/25 07/22/25 Rx tabs Allergies Allergy/AdvReac Type Severity Reaction Status Date / Time albuterol Allergy Mild Rash Verified 07/22/25 13:25 nitrofurantoin Allergy Unknown Rash Verified 07/22/25 13:25 diphenhydramine AdvReac Mild Nervousness Verified 07/22/25 13:25 prednisone AdvReac Mild HYPER, Verified 07/22/25 13:25 UNABLE TO SLEEP/FOCUS Exam Const: General: cooperative, healthy appearing, comfortable and overweight Orientation/consciousness: oriented to person, oriented to place and oriented to time Resp: Effort & Inspection: normal respiratory effort Cardio: Rate: regular rate Rhythm: regular rhythm Heart sounds: S1 normal heart sound present and S2 normal heart sound present GI: Inspection: normal to inspection : External Female Exam: normal external appearance Speculum Exam - Vagina: normal appearance of the vagina Speculum Exam - Cervix: Cervix absent Bimanual exam- vagina & uterus: uterus absent Bimanual Exam- Adnexa, other: tender on the right Assessment and Plan Assessment and plan (1) Right ovarian cyst: Code(s): N83.201 - Unspecified ovarian cyst, right side Status: Acute Plan Proceed with laparoscopic right salpingo-oophorectomy
[2025-07-28] VITALS (10 sets, daily range): BP systolic 102–127; BP diastolic 55–71; PULSE 63–82; RESP 14–20; TEMP 36.4; O2SAT 95–100
--- NOTE | 2025-07-28 06:37 | WPDHPUPDATE1 ---
History and Physical Update Update Date/Time: 07/28/25 06:37 History and Physical has been reviewed, including an updated exam of the patient. There are NO changes in the patient's condition. Risks, benefits, and alternatives have been discussed and questions answered. Patient agrees to proceed with procedure.
[2025-07-28] MEDS: LACTATED RINGERS 1,000 ML 30 ML IV CONT ×2 (06:58→09:24)
--- NOTE | 2025-07-28 07:17 | P.PNAN_ITS ---
Anes - Initial Pre Proc Eval Procedure: Operation Date: 07/28/25 08:30 Proposed Procedures p Laparoscopic Right Salpingo Oophorectomy - Meng Rosenberg MD Date/Time: 07/28/25 07:17 Surgeon: Meng Rosenberg MD Pre Op Diagnosis: right ovarian mass, pelvic pain Patient Data Age: 70 Gender: F Height: 1.55 m Weight: 70.6 kg Allergies Allergy/AdvReac Type Severity Reaction Status Date / Time albuterol Allergy Mild Rash Verified 07/28/25 06:40 nitrofurantoin Allergy Unknown Rash Verified 07/28/25 06:40 diphenhydramine AdvReac Mild Nervousness Verified 07/28/25 06:40 prednisone AdvReac Mild HYPER, Verified 07/28/25 06:40 UNABLE TO SLEEP/FOCUS Home Medications ?Medication ?Instructions ?Recorded ?Confirmed ?Type cetirizine 10 mg tablet (Zyrtec) 10 mg PO DAILY PRN Al lergic 09/29/23 07/22/25 History Symptoms acetaminophen 500 mg capsule 1,000 mg PO Q6H PRN Pain 06/16/24 07/22/25 History calcium carbonate (Calcium 600) 600 mg PO DAILY #90 ta bs 03/21/25 07/28/25 Rx cholecalciferol (vitamin D3) 50 50 mcg PO DAILY #90 ta bs 03/21/25 07/28/25 Rx mcg (2,000 unit) tablet cetirizine 5 mg-pseudoephedrine ER 1 tablet PO Q12H #1 0 tabs 04/21/25 07/28/25 Rx 120 mg tablet,extended release,12hr (Zyrtec-D) fluticasone propionate 50 2 spray intranasal DAILY #16 grams 04/21/25 07/28/25 Rx mcg/actuation nasal spray,suspension (Flonase Allergy Relief) acetaminophen 500 mg tablet 1,000 mg (2 x 500 mg) PO T ID PRN 04/29/25 07/22/25 Rx virginia 7 days #42 tabs cephalexin 500 mg capsule 500 mg PO Q12H #10 caps /05/2707/22/25 Rx methocarbamol 750 mg tablet 1,500 mg (2 x 750 mg) PO T ID #42 04/29/25 07/28/25 Rx tabs hydrocodone 5 mg-acetaminophen 325 1 tablet PO Q4H PRN pain #20 tabs 07/28/25 Rx mg tablet Patient hx anesthesia problems: none Family hx anesthesia problems: none Results Review: All pre-operative results and documents have been reviewed as part of the pre- operative evaluation. [facility] Past Medical History Medical History Osteopenia (~2023) Vertigo Hx of cyst of breast (~1974) s/p - excision Environmental allergies Vitamin D deficiency (~09/2021) Pneumonia due to COVID-19 virus (~06/2021) Surgical History Surgical History H/O foot surgery Right 06/2024 Hx of appendectomy (~1962) History of hysterectomy (~2000) Family History Family History Grandparent Hypertension Social History Social History Social History: The patient lives with her Edwar. She would like for Edwar to be her surrogate decision maker and she desires to be a full code. 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 She has no children. Lifelong nonsmoker and does not use alcohol. No marijuana or illicit drugs. Smoking status: Never smoker Alcohol intake: never Substance use: never Substance use type: does not use Lack of Transportation: No Lack of Food: Never True Current Housing: I Have Housing Concerned About Future Housing: No Difficulty Paying Gas/Electric Bills: No Difficulty Paying for Meds: No Currently Unemployed: No Education: High School Diploma/GED Living arrangements: with family Additional living arrangements comments: HUSB & 2 GRANDCHILDREN Occupation/Education: occupation Gender identity (if verbalized by the patient): Female Sexual Orientation (if Verbalized by the Patient): Straight or Heterosexual Spiritual care concerns: No Agree to blood products: Yes Anes - Eval Final PreProcedure Day of Procedure 07/28/25 07:17 Patient weight: overweight Heart: regular rate and rhythm Lungs: clear to auscultation Airway: Mallampati scale class II Neurological: alert and oriented Last oral intake: >/= 8 hours ASA classification: II Emergent: no Anesthetic plan: proceed Anesthesia type and monitoring: general ETT and standard monitoring Results Review: All pre-operative results and documents have been reviewed as part of the pre- operative evaluation. Informed Consent: The patient's anesthetic plan and its attendant risks and benefits were discussed with the patient/family/POA. Questions were solicited and answers provided to the satisfaction of the patient/family/POA.
[2025-07-28] MEDS: KETOROLAC 15 MG/ML VIAL (*BKC) IV PUSH (07:56)
[2025-07-28] MEDS: ACETAMINOPHEN 500 MG TABLET 1000 MG PO (07:56)
--- NOTE | 2025-07-28 09:09 | S_PTH ---
PATIENT: Kenya Yan LOC: [facility] U#:[id number] AGE/SX: 70/F ROOM: RE07/28/[address]: Meng Rosenberg MD : 1955 BED: DIS: 07/28/2025 SPEC #: [id number] RECD: 07/28/25 10:36 STATUS: BENJAMIN REQ #: [id number] SANTO: 07/28/25 09:[address]: Meng Veliz DEPT: [facility] Surgical RECD BY: Monica An ENTERED: 07/28/25 10:36 SP TYPE: Surgical OTHR DR: Janell Bills MD Tissues: A - Ovary Procedures: Hematoxylin and Eosin Stain Gross and Microscopic Level 4
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
[2025-07-28] MEDS: fentaNYL CITRATE INJ (*CRX) 100 MCG/2 ML VIAL 25 MCG IV PUSH ×4 (09:49→10:37)
== END 2025-07-28 11:42 | disposition home or self-care (01) ==
PROVIDERS: PCP Family Medicine; Visit Provider Obstetrics & Gynecology
PROC: (CPT 49320; principal; 2025-07-28 08:30)
DX: N83.291 Other ovarian cyst, right side (principal); N73.6 Female pelvic peritoneal adhesions (postinfective); E55.9 Vitamin D deficiency, unspecified; M85.88 Other specified disorders of bone density and structure, other site; Z79.891 Long term (current) use of opiate analgesic; Z98.890 Other specified postprocedural states
CPT/HCPCS: 58661; 88305; A9270; J1100; J1885; J2003; J2250; J2405; J2704; J3010; J7030; J7120